=== PATIENT | female | born 1955 | race Caucasian/White ===

== ENCOUNTER → 2016-05-24 | Outpatient (CLI) | payer OTHER ==
--- NOTE | 2016-05-24 11:40 | MM ---
Reason for exam: additional evaluation requested from abnormal screening. Last mammogram was performed less than 1 month ago. History: Patient is postmenopausal, has history of breast cancer at age 46, has history of high-risk lesion on a previous biopsy at age 46, and had first child at age 30. High risk stereotactic core biopsy of the right breast, November 18, 2001. Lumpectomy of the right breast, 2001. Benign excisional biopsy of the left breast, July 17, 1999. Core biopsy of the right breast. Radiation therapy of the right breast. Physical Findings: Nurse did not find any significant physical abnormalities on exam. MG Work Up Mamm w CAD LT LM, CC with magnification, and LM with magnification view(s) were taken of the left breast. Prior study comparison: May 18, 2016, bilateral MG screening mammo w CAD. April 26, 2015, bilateral MG screening mammo w CAD. Finding: There is an indeterminate cluster of calcifications in the left breast for which a tissue biopsy is recommended. These results were verbally communicated with the patient and result sheet given to the patient on 05/24/16. ASSESSMENT: Suspicious, BI-RAD 4 RECOMMENDATION: Stereotactic core biopsy of the left breast. Called Dr. Beaver with mammographic findings and has scheduled an appointment for the patient for 06/14/16 at 9:[address] Sifuentes. PRELIMINARY REPORT CALLED AND FAXED TO DR. SIFUENTES ON 05/24/16 AT 300/TP.
== END | disposition home or self-care (01) ==
LOC: RADMAMWWP 10:33
PROVIDERS: ATTEND Family Medicine
DX: R92.8 Other abnormal and inconclusive findings on diagnostic imaging of breast (principal)

== ENCOUNTER → 2016-06-21 | Day surgery (SDC) | payer OTHER ==
[~2016-06-21] MED LIST: BACITRACIN OINT 1 EACH PACKET TOPICAL ONE; LIDOCAINE 1% INJ 10MG/ML (20 ML MDV) ONE; SODIUM BICARB 4% 5 ML VIAL (0.48 MEQ/ML) ONE
--- NOTE | 2016-06-21 14:49 | MM ---
EXAMINATION TYPE: MG stereo VAD BX LT DATE OF EXAM: 06/21/2016 12:35 PM COMPARISON: 05/18/2016 and 05/24/2016 CLINICAL HISTORY: 60 year-old female history of right breast cancer and abnormal left breast mammogram, referred for stereotactic biopsy of left breast microcalcifications. TECHNIQUE: Stereotactic guided core biopsy of the left breast approximately 8: 00 position. FINDINGS: The procedure of stereotactic guided core biopsy was explained to the patient. Benefits, alternatives, and risks were discussed. An informed consent was then obtained. [facility]. Shortness pathway was CC from below approach. I performed the localization followed by the remainder of the procedure. An 8 gauge mammotome vacuum assisted biopsy gun was used to obtain multiple core samples. The patient tolerated the procedure well without any immediate complication. The patient was kept in the radiology department for short stay after the procedure and then discharged home in stable condition. Targeted calcifications are identified in specimen mammogram. Post biopsy mammogram shows the clip to have migrated superiorly by 1.5-2.0 cm. IMPRESSION: SUCCESSFUL, UNCOMPLICATED STEREOTACTIC GUIDED CORE BIOPSY OF 8:00 LEFT BREAST MICROCALCIFICATIONS, FULL PATHOLOGY RESULTS TO FOLLOW. NOTE SLIGHT SUPERIOR MIGRATION OF THE BIOPSY CLIP. 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 SEE SURGICAL PATHOLOGY CANCER CASE SUMMARY AND COMMENT. Recommendation Surgical consult of the left breast. JOSE
== END ==
LOC: RADMAMWWP 10:41
PROVIDERS: ATTEND Surgery
DX: D05.12 Intraductal carcinoma in situ of left breast (principal); N64.89 Other specified disorders of breast; Z85.3 Personal history of malignant neoplasm of breast; Z88.5 Allergy status to narcotic agent
CPT/HCPCS: 88305; 88342; 88341; 19081; A4648; J2001

== ENCOUNTER → 2016-07-13 | Outpatient (CLI) | payer OTHER ==
[2016-07-13 10:51] LABS: Non-African American GFR(MDRD) >60 (>60 ml/min/1.73 sqM)
== END | disposition home or self-care (01) ==
LOC: LABWHC1 10:36
PROVIDERS: ATTEND Surgery
DX: C50.919 Malignant neoplasm of unspecified site of unspecified female breast (principal)
CPT/HCPCS: 36415; 82565

== ENCOUNTER → 2016-07-16 | Outpatient (CLI) | payer OTHER ==
--- NOTE | 2016-07-19 14:36 | BMR ---
EXAMINATION TYPE: MR breast BILAT wo/w con DATE OF EXAM: 07/16/2016 8:48 AM COMPARISON: Mammogram 18 May 2016 HISTORY: breast ca, left TECHNIQUE: A series of fat and water weighted images in the long and short axis views of both breasts are obtained in conjunction with dynamic contrast MRI with subtraction technique. The patient was i njected with 15 mL intravenous MultiHance gadolinium contrast. Three-dimensional and additional pos tprocessing imaging is created on independent workstation and reviewed during official interpretation of this study. FINDINGS: Left breast: Fibroglandular tissues are present. Post biopsy change is noted at the medial aspect of the left breast . No suspicious mass like enhancement. Stippled background enhancement is noted. No axillary adenopat hy, no internal mammary node. Right breast: Right breast is smaller and is predominantly fatty replaced. No suspicious mass like en hancement. No evident adenopathy. IMPRESSION: Left breast BI-RADS 6, known carcinoma. Follow-up for surgery. No suspicious mass like enhancement. Right breast: BI-RADS 6, known history of breast carcinoma no suspicious mass enhancement within the right breast.
== END | disposition home or self-care (01) ==
LOC: RADMRIMAIN 06:58
PROVIDERS: ATTEND Surgery
DX: C50.919 Malignant neoplasm of unspecified site of unspecified female breast (principal)
CPT/HCPCS: 0159T; C8908; A9577; 77059

== ENCOUNTER → 2016-07-19 | Outpatient (CLI) | payer OTHER ==
--- NOTE | 2016-07-19 14:11 | US ---
EXAMINATION TYPE: US pelvic complete DATE OF EXAM: 07/19/2016 1:57 PM COMPARISON: NONE CLINICAL HISTORY: R10.3 Abdominal Pain,R01.1 heart murmur. gen pelvic pain TECHNIQUE: Transvaginal (TV) and Transabdominal (TA) Date of LMP: post menopausal since 2005 EXAM MEASUREMENTS: Uterus: 5.9 x 2.4 x 3.6 cm Endometrial Stripe: 0.4 cm Right Ovary: 2.1 x 0.8 x 1.0 cm Left Ovary: 1.8 x 1.1 x 1.4 cm tv added to better visualize the uterus and lisa ovaries 1. Uterus: Anteverted wnl 2. Endometrium: wnl 3. Right Ovary: wnl 4. Left Ovary: wnl 5. Bilateral Adnexa: wnl 6. Posterior cul-de-sac: no free fluid seen IMPRESSION: No significant abnormality is appreciated.
--- NOTE | 2016-07-19 14:11 | US ---
EXAMINATION TYPE: US abdomen complete DATE OF EXAM: 07/19/2016 1:43 PM COMPARISON: NONE CLINICAL HISTORY: R10.3 Abdominal Pain,R01.1 heart murmur. ruq pain EXAM MEASUREMENTS: Liver Length: 14.6 cm Gallbladder Wall: 0.2 cm CBD: 0.4 cm Spleen: 8.7 cm Right Kidney: 9.7 x 4.3 x 4.8 cm Left Kidney: 9.2 x 5.6 x 4.9 cm TECHNOLOGIST IMPRESSION: some exam limitations due to overlying bowel gas Pancreas: wnl Liver: wnl Gallbladder: few mobile stones seen, no wall thickening Evidence for sonographic Walden's sign: no CBD: wnl Spleen: wnl Right Kidney: wnl Left Kidney: wnl Upper IVC: wnl Abd Aorta: wnl The liver is homogenous. The intrahepatic portion of the IVC and proximal abdominal aorta are within normal limits. There is evidence of cholelithiasis. Common bile duct is unremarkable. The visualiz ed portions of the pancreas are homogenous. The spleen is unremarkable. Kidneys are symmetric and f ree of hydronephrosis. No renal lesions are seen. IMPRESSION: Uncomplicated cholelithiasis.
== END | disposition home or self-care (01) ==
LOC: RADUSWWP 13:26
PROVIDERS: ATTEND Family Medicine
DX: K80.20 Calculus of gallbladder without cholecystitis without obstruction (principal); R10.30 Lower abdominal pain, unspecified
CPT/HCPCS: 76700; 76830; 76856

== ENCOUNTER → 2016-07-23 | Outpatient (CLI) | payer OTHER ==
--- NOTE | 2016-07-24 09:57 | ECHOF ---
Referral Reason:R01.1 heart murmur MEASUREMENTS -------- HEIGHT: 170.2 cm WEIGHT: 68.5 kg BP: IVSd: 1.1 cm (0.6 - 1.1) LVIDd: 4.3 cm (3.9 - 5.3) LVPWd: 0.6 cm (0.6 - 1.1) IVSs: 1.4 cm LVIDs: 2.8 cm LVPWs: 1.2 cm LA Diam: 2.9 cm (2.7 - 3.8) LAESV Index (A-L): 23.44 ml/m Ao Diam: 2.5 cm (2.0 - 3.7) AV Cusp: 1.7 cm (1.5 - 2.6) LA Diam: 3.3 cm (2.7 - 3.8) MV EXCURSION: 15.098 mm (> 18.000) MV EF SLOPE: 73 mm/s (70 - 150) EPSS: 0.3 cm MV E Kip: 0.38 m/s MV DecT: 278 ms MV A Kip: 0.73 m/s MV E/A Ratio: 0.52 AR PHT: 536 ms RAP: 5.00 mmHg RVSP: 26.63 mmHg FINDINGS -------- Sinus rhythm. This was a technically good study. There is mild concentric left ventricular hypertrophy. Overall left ventricular systolic function is low-normal with, an EF between 50 - 55 %. The right ventricle is normal in size. Normal LA size by volume 22+/-6 ml/m2. The right atrial size is normal. There is mild aortic valve sclerosis. Trace amount of aortic regurgitation. Mild mitral annular calcification present. There is trace mitral regurgitation. Trace tricuspid regurgitation present. There is no evidence of pulmonary hypertension. The right ventricular systolic pressure, as measured by Doppler, is 26.63mmHg. Trace/mild (physiologic) pulmonic regurgitation. The aortic root size is normal. There is no pericardial effusion. CONCLUSIONS -------- 1. There is mild concentric left ventricular hypertrophy. 2. The right ventricular systolic pressure, as measured by Doppler, is 26.63mmHg. 3. Trace/mild (physiologic) pulmonic regurgitation. 4. The aortic root size is normal. 5. There is no pericardial effusion. 6. Overall left ventricular systolic function is low-normal with, an EF between 50 - 55 %. 7. Normal LA size by volume 22+/-6 ml/m2. 8. There is mild aortic valve sclerosis. 9. Trace amount of aortic regurgitation. 10. Mild mitral annular calcification present. 11. There is trace mitral regurgitation. 12. Trace tricuspid regurgitation present. 13. There is no evidence of pulmonary hypertension. ACCOUNTS PAYABLE TECHNICIAN: Amy Velasquez RDCS
== END | disposition home or self-care (01) ==
LOC: RADECHMAIN 11:10
PROVIDERS: ATTEND Family Medicine
DX: I08.8 Other rheumatic multiple valve diseases (principal)
CPT/HCPCS: 93306

== ENCOUNTER 2016-08-14 06:45 | Day surgery (SDC) | payer OTHER ==
[2016-08-09 15:10] VITALS: BMI 23.6
[~2016-08-14 06:45] MED LIST changes: +ALPRAZolam 0.25 MG TAB PO PRN; -BACITRACIN OINT 1 EACH PACKET TOPICAL ONE; +DEXAMETHASONE SOD PHOSPHATE 10 MG/ML 1 ML VIAL IV ONE; +HYDROmorphone 1 MG/ML 1 ML SYRINGE IVP PRN; +LACTATED RINGERS 1,000 ML IV SCH; -LIDOCAINE 1% INJ 10MG/ML (20 ML MDV) ONE; +ONDANSETRON 4 MG/2 ML VIAL IVP ONE; +Pre Op ABX Message 1 EACH MISC MISCELLANE ONE; -SODIUM BICARB 4% 5 ML VIAL (0.48 MEQ/ML) ONE
[2016-08-14] MEDS ORDERED: LIDOCAINE 1% 20 ML VIAL (10MG/ML) FOR IV START INTRADERMA ONE (07:59)
[2016-08-14] MEDS ORDERED: METHYLENE BLUE 50 MG/10 ML AMPUL ONE (08:14)
[2016-08-14] MEDS ORDERED: LIDOCAINE 1% INJ 10MG/ML (20 ML MDV) SQ ONE (08:29)
[2016-08-14] MEDS ORDERED: SODIUM BICARB 4% 5 ML VIAL (0.48 MEQ/ML) MISCELLANE ONE (08:29)
[2016-08-14] MEDS ORDERED: HEPARIN SODIUM,PORCINE 5,000 UNIT/ML 1 ML VIAL SQ ONE (08:52)
[2016-08-14] MEDS ORDERED: METHYLENE BLUE 50 MG/10 ML AMPUL MISCELLANE ONE (09:02)
--- NOTE | 2016-08-14 09:11 | NM ---
EXAMINATION TYPE: NM sentinel node injection DATE OF EXAM: 08/14/2016 8:51 AM COMPARISON: NONE HISTORY: Abnormal left breast biopsy TECHNIQUE AND FINDINGS: The procedure of sentinel lymph node injection was explained to the patient. The benefits, alternatives, and risks were discussed. An informed consent was then obtained. Overlying skin is cleaned with sterile alcohol. Lidocaine buffered with bicarbonate was used as anes thetic into the skin and subcutaneous tissue surrounding the nipple. Following this, 550 uCi Tc 99m Filtered Sulfur Colloid was injected into 4 equivalent doses at 12, 3, 6, and 9:00 position surroundi ng the left nipple intradermally. The injection sites were massaged by eeg technologist for 10 minutes after injection. T he patient tolerated the procedure well without any immediate complication. The patient was kept in the radiology department for short stay after the procedure and then taken to surgery for surgical pr ocedure what is presumed intraoperative gamma probe will be used for sentinel lymph node detection. IMPRESSION: Left breast radiotracer injection for sentinel node localization as above.
[2016-08-14] MEDS ORDERED: SUCCINYLCHOLINE CHLORIDE 100 MG/5 ML SYR IV ONE (09:40)
[2016-08-14] MEDS ORDERED: fentaNYL (PF) 50 MCG/ML 2 ML AMP ONE (09:40)
[2016-08-14] MEDS ORDERED: PROPOFOL 10 MG/ML 20 ML VIAL IV ONE (09:40)
[2016-08-14] MEDS ORDERED: MIDAZOLAM 2 MG/2 ML VIAL ONE (09:40)
[2016-08-14] MEDS ORDERED: SODIUM CHLORIDE 0.9% 50 ML with ceFAZolin 2,000 MG IV ONE ×2 (10:01)
[2016-08-14] MEDS ORDERED: METHYLENE BLUE 10 MG/ML 1 ML VIAL INJ ONE (10:17)
--- NOTE | 2016-08-14 10:41 | MM ---
EXAMINATION TYPE: MG pre op needle loc LT DATE OF EXAM: 08/14/2016 9:02 AM COMPARISON: NONE CLINICAL HISTORY: Abnormal biopsy left breast TECHNIQUE: Needle localization with wire placement and surgical excision of area of concern in the left breast. FINDINGS: The procedure of needle localization with wire placement and than surgical excision was explained to the patient. Benefits, alternatives, and risks were discussed. An informed consent was then obtained. The shortest pathway for procedure was chosen. Shortest pathway was medial approach. The overlying skin was prepped and draped in usual sterile fashion. Lidocaine buffered with bicarbonate was used as anesthetic into the skin and subcutaneous tissue up to the level of area of concern. A 7 cm needle was used. It was placed via a medial approach under mammographic guidance. Subsequent 90 degrees mammogram show the needle to be in satisfactory position relative to the targeted area. At this point, wire was placed and the needle was withdrawn. The wire was fixed to patient's skin. Images were marked for surgeon. The patient tolerated the procedure well without any immediate complication. The patient was kept in the radiology department for short stay after the procedure and then taken to surgery for surgical excision. Targeted biopsy clip and wire are identified in specimen mammogram. The clip migration was taking into account with the needle placed inferior to the clip. Region of concern and history of migration of clip or discussed with surgeon. Postprocedural x-ray demonstrates the surgical clip to be contained within the specimen. IMPRESSION: Successful, uncomplicated needle localization with wire placement left breast. Pathology Results: Benign (original pathology malignant) A. LYMPH NODE, SENTINEL #1, BIOPSY: LYMPH NODE NEGATIVE FOR METASTASIS. CYTOKERATIN 7 AND FLO IMMUNOSTAINS ARE CONFIRMATORY (CONTROLS APPROPRIATE). ADDENDUM REPORT B. BREAST, LEFT, LUMPECTOMY: BREAST WITH FOCAL ATYPICAL DUCTAL HYPERPLASIA (ADH) , PREVIOUS BIOPSY SITE AND FIBROCYSTIC CHANGES INCLUDING FIBROSIS, CYSTS, ADENOSIS, APOCRINE METAPLASIA AND MICROCALCIFICATIONS. NO RESIDUAL DCIS IDENTIFIED. C. BREAST, LEFT, NEW LATERAL MARGINS: PROLIFERATIVE FIBROCYSTIC CHANGES INCLUDING RADIAL SCARS/COMPLEX SCLEROSING LESIONS, FIBROSIS, CYSTS, APOCRINE METAPLASIA, ADENOSIS AND MICROCALCIFICATIONS. FOCAL SCAR/FIBROSIS SUGGESTIVE OF PREVIOUS BIOPSY SITE VERSUS RUPTURED CYST. NEGATIVE FOR MALIGNANCY. Recommendation Follow up mammogram of the left breast in 6 months. [facility]
[2016-08-14] MEDS ORDERED: LACTATED RINGERS 1,000 ML IV ONE (11:42)
--- NOTE | 2016-08-14 11:46 | P.OP ---
Date of Procedure: 08/14/16 Preoperative Diagnosis: Left breast ductal carcinoma in situ Postoperative Diagnosis: Same, sentinel lymph node biopsy negative for cancer Procedure(s) Performed: [place] lymph node mapping, Left breast lumpectomy,oncoplastic tissue transfer , placement of Biozorb, sentinel node biopsy Anesthesia: SHAWNA Surgeon: Estelle Perez Estimated Blood Loss (ml): 5 IV fluids (ml): 1,100 Pathology: other (Left breast lumpectomy, sentinel lymph node biopsy) Condition: stable Disposition: PACU Indications for Procedure: Left breast ductal carcinoma in situ Operative Findings: Left breast dense breast tissue, left axilla blue and radioactive sentinel node Description of Procedure: Patient was taken to the operating room and following induction of general anesthesia 5 mL of half-strength methylene blue were injected in the left periareolar area. The breast was then massaged. The breast and axilla were then prepped and draped in a sterile fashion. The patient had previously undergone needle localization of area of concern in the left breast. An incision was made and carried down to the localizing needle and wide resection was performed. The specimen was removed and the margin probe was utilized to interrogate the margins. The lateral margin was positive and reexcision of lateral margin was obtained. The remainder of the margins were negative on margin probe. Following this the specimen was painted as well as the new lateral margin and the specimen was sent for radiographic evaluation. The area of concern was removed as per radiographic evaluation. Following this after assured that hemostasis was attained arthroplasty tissue plane was performed. The inferior tissue was freed approximately 4 cm inferiorly and the superior tissue was made approximately 4 cm superior free the underlying skin. this was accomplished an 80 cm distance both superiorly and inferiorly. therefore approximately 30 cm of tissue were free. the medial area of the resection specimen was reapproximated using vicryl suture. the specimen was measured for biosorb size placement and a 4 x 4 biosorb was chosen. this was placed in the cavity and the tissues were approximated over this biosorb after it had been secured to the cavity. Dissection was carried posteriorly to the muscle of the pectoralis major. additionally the skin of the breast was removed anteriorly. The subcutaneous tissues were closed with 3-0 Vicryl suture. The skin was closed with 4-0 Monocryl. A 3-0 nylon was placed anterior to this. Following this instruments and gloves were changed and the area of the axilla was approached. The neoprobe was used to identify the area where the sentinel node was located. A small incision was made and carried down to the area of the the axilla. Blue radioactive lymph node was identified and this was carefully removed using the Harmonic scalpel. This was sent for frozen section evaluation which was negative for cancer. After assured that hemostasis was attained the deep tissues were closed using 3-0 Vicryl suture. This is followed by closure of the skin with 4-0 Monocryl. The patient tolerated the procedure in stable condition. All instrument sponge counts were correct at the end of the procedure.
--- NOTE | 2016-08-14 11:48 | P.DS ---
Providers Attending physician: Estelle Perez Primary care physician: Stated None Plan - Discharge Summary Discharge Medication List Enalapril [Vasotec] 10 mg PO TID 10/14/13 [History] Simvastatin [Zocor] 20 mg PO DAILY 10/14/13 [History] Biotin 5 mg PO DAILY 08/09/16 [History] Cholecalciferol [Vitamin D3] 1,000 unit PO DAILY 08/09/16 [History] Multivitamins, Thera [Multivitamin (formulary)] 1 tab PO DAILY 08/09/16 [History ] Follow up Appointment(s)/Referral(s): Estelle Perez MD [STAFF PHYSICIAN] - 1 Week Activity/Diet/Wound Care/Special Instructions: Wear bra at all times Do not drive until seen by Dr. Curran Discharge Disposition: HOME SELF-CARE
[2016-08-14 12:05] VITALS: TEMP 96.8
[2016-08-14] MEDS ORDERED: KETOROLAC 30 MG/ML 1 ML VIAL IVP ONE (12:10)
[2016-08-14 12:41] VITALS: RESP 16
[2016-08-14 12:58] VITALS: BP 139/77; PULSE 73
--- NOTE | 2016-08-20 14:51 | MM ---
MG Surgical Specimen LT EXAMINATION TYPE: MG pre op needle loc LT DATE OF EXAM: 08/14/2016 9:02 AM COMPARISON: NONE CLINICAL HISTORY: Abnormal biopsy left breast TECHNIQUE: Needle localization with wire placement and surgical excision of area of concern in the left breast. FINDINGS: The procedure of needle localization with wire placement and than surgical excision was explained to the patient. Benefits, alternatives, and risks were discussed. An informed consent was then obtained. The shortest pathway for procedure was chosen. Shortest pathway was medial approach. The overlying skin was prepped and draped in usual sterile fashion. Lidocaine buffered with bicarbonate was used as anesthetic into the skin and subcutaneous tissue up to the level of area of concern. A 7 cm needle was used. It was placed via a medial approach under mammographic guidance. Subsequent 90 degrees mammogram show the needle to be in satisfactory position relative to the targeted area. At this point, wire was placed and the needle was withdrawn. The wire was fixed to patient's skin. Images were marked for surgeon. The patient tolerated the procedure well without any immediate complication. The patient was kept in the radiology department for short stay after the procedure and then taken to surgery for surgical excision. Targeted biopsy clip and wire are identified in specimen mammogram. The clip migration was taking into account with the needle placed inferior to the clip. Region of concern and history of migration of clip or discussed with surgeon. Postprocedural x-ray demonstrates the surgical clip to be contained within the specimen. IMPRESSION: Successful, uncomplicated needle localization with wire placement left breast. RECOMMENDATION: Follow-up diagnostic mammogram of the left breast in 6 months.
== END 2016-08-14 13:42 | disposition home or self-care (01) ==
LOC: OR 06:45
PROVIDERS: ATTEND Surgery
DX: D05.12 Intraductal carcinoma in situ of left breast (principal); R92.8 Other abnormal and inconclusive findings on diagnostic imaging of breast; M19.90 Unspecified osteoarthritis, unspecified site; I10 Essential (primary) hypertension; E78.5 Hyperlipidemia, unspecified; Z79.899 Other long term (current) drug therapy; Z88.5 Allergy status to narcotic agent; Z91.048 Other nonmedicinal substance allergy status
CPT/HCPCS: 88342; 88331; 88307; 88341; 76098; 19281; 38792; 38525; 19301; 15777; C1713; A9541; J2250; J1644; J1100; J2405; J2001; J3010; J1885; J0690; J0330; J2704; Q9968

== ENCOUNTER → 2017-09-18 | Outpatient (CLI) | payer OTHER ==
--- NOTE | 2017-09-18 09:24 | US ---
EXAMINATION TYPE: US abdomen complete DATE OF EXAM: 09/18/2017 COMPARISON: NONE CLINICAL HISTORY: 61-year-old female R20.0 NUMBNESS OF FACE. History of breast cancer twice TECHNIQUE: Multiple sonographic images of the abdomen are obtained. FINDINGS: EXAM MEASUREMENTS: Liver Length: 15.4 cm Gallbladder Wall: 0.2 cm CBD: 0.4 cm Spleen: 9.0 cm Right Kidney: 11.0 x 4.0 x 4.8 cm Left Kidney: 10.4 x 3.9 x 6.0 cm Pancreas: wnl Liver: wnl Gallbladder: 2 mobile non shadowing stone seen measuring up to 9 mm. No abnormal gallbladder distent ion, wall thickening, or pericholecystic fluid. Evidence for sonographic Walden's sign: no CBD: wnl Spleen: wnl Right Kidney: wnl Left Kidney: wnl Upper IVC: wnl Abd Aorta: wnl IMPRESSION: Cholelithiasis. Otherwise, unremarkable sonographic examination of the abdomen.
--- NOTE | 2017-09-18 09:27 | US ---
EXAMINATION TYPE: US carotid duplex BILAT DATE OF EXAM: 09/18/2017 COMPARISON: NONE CLINICAL HISTORY: 61-year-old female R20.0 NUMBNESS OF FACE. Episode of facial numbness after medicin e change, no h/o stroke TECHNIQUE: Carotid duplex ultrasound examination. In direct Doppler criteria was utilized. FINDINGS: EXAM MEASUREMENTS: RIGHT: Peak Systolic Velocity (PSV) cm/sec ----- Right CCA: 79.7 ----- Right ICA: 126.6 ----- Right ECA: 64.6 ICA/CCA ratio: 1.6 RIGHT: End Diastole cm/sec ----- Right CCA: 32.6 ----- Right ICA: 50.6 ----- Right ECA: 12.6 LEFT: Peak Systolic Velocity (PSV) cm/sec ----- Left CCA: 89.6 ----- Left ICA: 122.6 ----- Left ECA: 73.2 ICA/CCA ratio: 1.4 LEFT: End Diastole cm/sec ----- Left CCA: 34.6 ----- Left ICA: 46.2 ----- Left ECA: 14.0 VERTEBRALS (direction of flow): Right Vertebral: Antegrade Left Vertebral: Antegrade Rhythm: Normal Pre Billing Clinician notes: Mild homogeneous plaque seen with no significant stenosis seen IMPRESSION: Borderline increased ICA velocities on the right could represent mild to moderate narrowing. Velocity increase secondary to some vessel tortuosity is suspected as there is only mild homogeneous plaque s een. No hemodynamically significant ICA stenosis on either side. Criteria for Assigning % of Stenosis / Diameter reduction (Estimation based on the indirect measurements of the internal carotid artery velocities (ICA PSV). 1. Normal (no stenosis)=ICA PSV < 125 cm/s: ratio < 2.0: ICA EDV<40 cm/s. 2. Less than 50% stenosis=ICA PSV < 125 cm/s: ratio < 2.0: ICA EDV<40 cm/s. 3. 50 to 69% stenosis=ICA PSV of 125 to 230 cm/s: ration 2.0 ? 4.0: ICA EDV 40-100 cm/s. 4. Greater than 70% stenosis to near occlusion= ICA PSV > 230 cm/s: ratio > 4.0: ICA EDV > 100 cm/s. 5. Near occlusion= ICA PSV velocities may be low or undetectable: variable ratio and ICA EDV. 6. Total occlusion=unable to detect flow.
--- NOTE | 2017-09-18 12:41 | US ---
EXAMINATION TYPE: US pelvic complete DATE OF EXAM: 09/18/2017 COMPARISON: NONE CLINICAL HISTORY: 61-year-old female R10.30 Lower abdominal pain. History of breast cancer twice. TECHNIQUE: Transabdominal sonographic images of the pelvis were acquired. Date of LMP: 2005 FINDINGS: EXAM MEASUREMENTS: Uterus: 5.2 x 3.8 x 2.2 cm Endometrial Stripe: 0.3 cm Right Ovary: 1.4 x 1.9 x 0.9 cm for a volume of 1.2 mL. Left Ovary: 1.2 x 1.5 x 0.8 cm for a volume of 0.8 mL. 1. Uterus: Anteverted wnl 2. Endometrium: wnl 3. Right Ovary: wnl 4. Left Ovary: wnl 5. Bilateral Adnexa: wnl 6. Posterior cul-de-sac: wnl IMPRESSION: Unremarkable transabdominal sonographic examination of the pelvis.
== END | disposition home or self-care (01) ==
LOC: RADUSWWP 06:56
PROVIDERS: ATTEND Family Medicine
DX: K80.20 Calculus of gallbladder without cholecystitis without obstruction (principal); I77.9 Disorder of arteries and arterioles, unspecified; R20.0 Anesthesia of skin; R10.30 Lower abdominal pain, unspecified
CPT/HCPCS: 76700; 76856; 93880

== ENCOUNTER → 2017-09-27 | Outpatient (CLI) | payer OTHER ==
--- NOTE | 2017-09-30 09:45 | MR ---
EXAMINATION TYPE: MR lumbar spine wo/w con DATE OF EXAM: 09/27/2017 COMPARISON: NONE HISTORY: sciatica TECHNIQUE: T1 and T2 axial and sagittal images of the lumbar spine are submitted. Contrast: 7 mL Gadavist FINDINGS: There is no abnormal signal seen within the visualized spinal cord or paraspinal soft tissu es. There are multiple gallstones. At L1-2 there is mild generalized degenerative change. No acute disc herniation or canal stenosis. No foraminal encroachment. At L2-3 there is moderate degenerative disc disease. Mild hypertrophy of the facet joints. Neural for kayode are patent. No Canal stenosis. At L3-4 there is severe degenerative disc disease is moderate facet arthropathy. No Canal stenosis. N eural foramina remain patent. Minimal central disc bulging slightly greater paracentrally the left. At L4-5 there is severe degenerative disc disease with moderate facet arthropathy. No canal stenosis or focal herniation. Neural foramina remain patent with mild encroachment on the left At L5-S1 there is degenerative disc disease with facet arthropathy but no canal stenosis or focal her niation. Mild right neural foraminal encroachment. Mild bilateral right lateral disc bulging. IMPRESSION: 1. Scoliotic curvature with multilevel severe degenerative disc disease. No canal stenosis or focal h erniation. There is mild neural foraminal encroachment at multiple levels as discussed above. 2. Cholelithiasis. MRI of the brain with and without contrast EXAM DATE: 09/27/2017 HISTORY: Facial paresthesia. TECHNIQUE: T1-weighted sagittal, T2, FLAIR, and diffusion axial, postcontrast T1 axial and coronal vi ews of the brain are submitted. CONTRAST: 7 mL Gadavist FINDINGS: There is no evidence of acute ischemia. The ventricles, basal cisterns, and sulci overlying the co nvexities are consistent with the patient's age. There is no mass effect or enhancing mass. Craniocervical junction maintained. Sella turcica has a normal appearance. No evidence of cerebellopo ntine angle mass. This changes of chronic sinusitis. WHITE MATTER: There are approximately 40 white matter lesions all measuring 5 mm or less. No enhancing lesions. No callosal lesions. No lesions perpendicular to ventricular system. IMPRESSION: 1. No acute intracranial process. 2. Nonspecific white matter changes can be associated with remote microvascular ischemia, hypertensio n. Demyelinating process not entirely excluded correlate clinically.
== END | disposition home or self-care (01) ==
LOC: RADMRIMAIN 14:16
PROVIDERS: ATTEND Family Medicine
DX: M51.16 Intervertebral disc disorders with radiculopathy, lumbar region (principal); M41.9 Scoliosis, unspecified; R90.89 Other abnormal findings on diagnostic imaging of central nervous system
CPT/HCPCS: 70553; 72158; A9581

== ENCOUNTER → 2017-10-18 | Outpatient (CLI) | payer OTHER ==
[2017-10-18 09:38] VITALS: BP 144/81; PULSE 75; TEMP 97.7; BMI 22.2
--- NOTE | 2017-10-18 10:24 | P.BCHP ---
History of Present Illness H&P Date: 10/18/17 The patient is a 62-year-old white female status post right breast lumpectomy and radiation therapy approximately 15 years ago for breast cancer. She did not have any chemo or hormonal therapy at that time. The patient most recently has undergone a left breast lumpectomy and radiation therapy in July 2016 for a breast cancer the patient did not have any chemo or hormonal therapy. She continues to feel fullness in the left breast near the area of the lumpectomy which seems to fluctuate in size at times. When she lays down it feels heavy at that site. A recent mammogram 04-29-17 which was bilateral felt to be benign but follow-up diagnostic mammogram of the left breast in 6 months time was recommended. Age of Menarche: 10 Age of Menopause: 46 # of Pregnancies: 1 Age at 1st : 30 Age at 1st Full-Term : 30 Hx of Breast-feeding: yes Currently Breast-feeding: no Current Use of Control: no How Long Using Control (Years): none How Long Using Hormone Therapy (Years): none Duration of Radiation Therapy (Months): Radiation Exposure to Chest Wall: treatetd for breast cancer bilateral Personal Hx Cancer: breast cancer bilateral Family Medical Hx: father: skin melanoma social history: smoke: none alcohol:none drugs: none BC Information Comment: Review of Systems Patient states she has known gallstones with intermittent right upper quadrant abdominal discomfort Neurologic: Patient states that she has had some dizziness and is being evaluated for MS Constitutional: Denies chills, Denies fever Eyes: denies blurred vision, denies bulging eye, denies decreased vision, denies diplopia, denies discharge, denies loss of vision Ears: right: decreased hearing (feels like fluid in her ear right), deny: ear discharge, earache, tinnitus Ears, nose, mouth and throat: Denies headache, Denies sore throat Breasts: bilateral: as per HPI Cardiovascular: Reports high blood pressure Respiratory: Denies cough Gastrointestinal: Denies diarrhea, Denies nausea, Denies vomiting Genitourinary: Denies dysuria, Denies hematuria Neurological: Reports numbness Psychiatric: Denies anxiety, Denies depression Endocrine: Denies fatigue, Denies weight change Past Medical History Past Medical History: Cancer, Hyperlipidemia, Hypertension, Rheumatoid Arthritis (RA) Additional Past Medical History / Comment(s): BREAST CANCER, RIGHT: 2005 OR 2007 , LEFT: 2017. scoliosis and sciaticca. degenerative disc disease History of Any Multi-Drug Resistant Organisms: None Reported Past Surgical History: Breast Surgery, Orthopedic Surgery Additional Past Surgical History / Comment(s): bunion. breast cancer: right 2005 or 2007, left 2017 Smoking Status: Never smoker Past Alcohol Use History: None Reported Past Drug Use History: None Reported - Past Family History Father Additional Family Medical History / Comment(s): skin cancer. mesothelioma. heart disease Mother Additional Family Medical History / Comment(s): parkinson's disease. heart disease Brother(s) Additional Family Medical History / Comment(s): polio. emphysema Medications and Allergies Home Medications Medication Instructions Recorded Confirmed Type Enalapril [Vasotec] 10 mg PO TID 10/14/13 08/09/16 History Simvastatin [Zocor] 20 mg PO DAILY 10/14/13 08/09/16 History Biotin 5 mg PO DAILY 08/09/16 08/09/16 History Cholecalciferol [Vitamin D3] 1,000 unit PO DAILY 08/09/16 08/09/16 History Multivitamins, Thera [Multivitamin 1 tab PO DAILY 08/09/16 08/09/16 History (formulary)] Allergies Allergy/AdvReac Type Severity Reaction Status Date / Time codeine Allergy Rash/Hives Verified 08/14/16 07:28 SURGICAL TAPE Allergy REDNESS Uncoded 08/09/16 16:12 Physical Exam - Constitutional General appearance: Reports average body habitus - Neck Neck: Reports normal ROM - Breast Breast - Narrative: breast exam: right: Postoperative changes from prior lumpectomy no new masses or lesions of concern Right axilla: No adenopathy of concern Left breast: Postop changes BioSorb still appears to be palpable no lesions of concern Left axilla no adenopathy of concern Assessment and Plan Assessment: Impression/plan: 1. History of bilateral breast cancer 2. Abnormal left breast mammogram 3. Symptomatic right upper quadrant discomfort with history of gallstones 4. Patient is being evaluated for MS Plan: 1. Repeat left breast mammogram with repeat appointment following this 2. Will discuss with Dr. Kitchen possibility of cholecystectomy Cc: Dr. Kitchen
== END | disposition home or self-care (01) ==
LOC: WWCWWP 09:23
PROVIDERS: ATTEND Surgery
DX: Z53.9 Procedure and treatment not carried out, unspecified reason (principal)

== ENCOUNTER → 2017-10-29 | Outpatient (CLI) | payer OTHER ==
--- NOTE | 2017-10-29 14:25 | MM ---
Reason for exam: follow-up at short interval from prior study. Last mammogram was performed 6 months ago. History: Patient is postmenopausal, has history of breast cancer at age 46, has history of high-risk lesion on a previous biopsy at age 46, and had first child at age 30. Benign MG pre op needle loc LT of the left breast, August 14, 2016. Malignant MG stereo VAD BX LT of the left breast, June 21, 2016. High risk stereotactic core biopsy of the right breast, November 18, 2001. Lumpectomy of the right breast, 2001. Benign excisional biopsy of the left breast, July 17, 1999. Core biopsy of the right breast. Radiation therapy of the right breast. Physical Findings: Nurse did not find any significant physical abnormalities on exam. MG Diagnostic Mammo LT w CAD CC and MLO view(s) were taken of the left breast. Prior study comparison: April 29, 2017, bilateral MG diagnostic mammo w CAD [facility]. May 24, 2016, left breast MG work up mamm w CAD LT. The breast tissue is heterogeneously dense. This may lower the sensitivity of mammography. Finding: There are typically benign calcifications in the left breast. Marked skin thickened. Post surgical change. Correlate for surgical implant device left lower inner quadrant. These results were verbally communicated with the patient and result sheet given to the patient on 10/29/17. ASSESSMENT: Benign, BI-RAD 2 RECOMMENDATION: Follow-up diagnostic mammogram of both breasts in 6 months. Called with mammographic findings and has scheduled an appointment for the patient for 10/31/17 at 10:[address] Perez. PRELIMINARY REPORT CALLED AND FAXED TO DR. PEREZ ON 10/29/17.
== END | disposition home or self-care (01) ==
LOC: RADMAMWWP 12:31
PROVIDERS: ATTEND Radiology Radiation Oncology
DX: Z08 Encounter for follow-up examination after completed treatment for malignant neoplasm (principal)
CPT/HCPCS: 77065

== ENCOUNTER → 2017-10-31 | Outpatient (CLI) | payer OTHER ==
[2017-10-31 11:11] VITALS: BP 126/71; PULSE 63; BMI 22.7
--- NOTE | 2017-10-31 11:28 | P.PN ---
Progress Note - Text Progress Note Date: 10/31/17 The patient is a 62-year-old white female status post left breast lumpectomy approximately 1-1/2 years ago. At that time she had a BioSorb and placed. She underwent a recent left breast mammogram on 10/29/2017. The left breast mammogram revealed some skin thickening and benign appearing calcifications in the left breast. This was felt to be a benign BIRADS 2 follow-up diagnostic mammogram of both breasts in 6 months was recommended. The patient is doing well with no complaints. Physical examination: Left breast: Postop as well as radiation changes noted in the left breast it appears that the BioSorb is not completely resolved at this time No axillary adenopathy of concern was identified Impression/plan: 1. We have had discussion regarding the left breast mammogram, it is felt that the palpable changes in the breasts are related to scar tissue, not completely absorbed BioSorb, and radiation. We will continue to follow conservatively 2. Repeat bilateral breast mammogram in 6 months time with appointment at that time. CC; [place], Dr. Vega radiation oncology
== END | disposition home or self-care (01) ==
LOC: WWCWWP 10:44
PROVIDERS: ATTEND Surgery
DX: Z53.9 Procedure and treatment not carried out, unspecified reason (principal)

== ENCOUNTER → 2017-10-31 | Outpatient (CLI) | payer OTHER ==
--- NOTE | 2017-10-31 13:28 | BD ---
EXAMINATION TYPE: Axial Bone Density DATE OF EXAM: 10/31/2017 COMPARISON: 04.26.2015 DEXA bone scan. CLINICAL HISTORY: 62 YR OLD FEMALE....ICD-10 CODE: Z13.820 SCREENING FOR OSTEOPOROSIS Height: 63.2 Weight: 143 FRAX RISK QUESTIONS: Family History (Parent hip fracture): YES Rheumatoid Arthritis: YES RISK FACTORS HISTORY OF: Family History of Osteoporosis: YES, MOTHER AND GRANDMOTHER WITH HIP FX Active: YES Diet low in dairy products/other sources of calcium: NO Postmenopausal woman: YES AT AGE 46 YRS OLD Lost more than 2 inches in height since high school: YES MEDICATIONS: Additional Medications: BP MEDS, HX OF RADIATION, VIT D AND MULTIVIT, STATINS FOR CHOLESTEROL, Additional History: DGD LOWER SPINE, HX OF BILAT BREAST CA, 2005 AND 2016 EXAM MEASUREMENTS: Bone mineral densitometry was performed using the [employer] System. Bone mineral density as measured about the Lumbar spine is: ----- L1-L4(G/cm2): 1.291 T Score Values are as follows: ----- L1: -0.2 ----- L2: 0.8 ----- L3: 1.5 ----- L4: 1.3 ----- L1-L4: 0.9 Bone mineral density has: Increased 3.7% since study of: 04.26.2015 Bone mineral density about the R hip (g/cm2): 1.086 Bone mineral density about the L hip (g/cm2): 1.153 T Score values are as follows: -----R Neck: 0.6 -----L Neck: 0.3 -----R Total: 0.6 -----L Total: 1.2 Bone mineral density has: Decreased -4.7% since study of: 04.26.2015 FRAX%s: THERE IS A 16.3% CHANCE OF A MAJOR OSTEOPOROTIC FX AND A 0.2% FOR HIP........PROBABILITY O F FX IN 10 YRS TIME IMPRESSION: Normal (Values between +1 and -1 indicate normal bone mass). Consider repeating this study in 5 year s or sooner if there is some new clinical indication. NOTE: T-SCORE=SD OF THE YOUNG ADULT MEAN.
== END | disposition home or self-care (01) ==
LOC: RADBDWWP 11:46
PROVIDERS: ATTEND Family Medicine
DX: Z13.820 Encounter for screening for osteoporosis (principal)
CPT/HCPCS: 77080

== ENCOUNTER → 2018-01-07 | Outpatient (CLI) | payer OTHER ==
[2018-01-07 17:08] LABS: Appearance,CSF Clear; CSF Tube Number 4; CSF Tube Volume 4; Nucleated Cells, CSF 0 u/L (0-5); Red Blood Cell,CSF 1 u/L (0-10)
[2018-01-07 17:23] LABS: Total Protein,CSF 62 mg/dL (12-60)
[2018-01-08 13:43] LABS: IgG/Albumin Index (CSF) 0.47 (0.00 - 0.77); Immunoglobulin G 805 mg/dL (700 - 1600)
== END | disposition home or self-care (01) ==
LOC: LABWHC1 11:52
PROVIDERS: ATTEND Nurse Practitioner Acute Care
DX: R90.82 White matter disease, unspecified (principal)
CPT/HCPCS: 36415; 82040; 82042; 82784; 83873; 83916; 84157; 87476; 89050

== ENCOUNTER 2018-01-10 19:47 | Emergency (ER) | payer OTHER ==
[2018-01-10] MEDS ORDERED: diphenhydrAMINE 50 MG/ML 1 ML VIAL IVP STA (21:26)
[2018-01-10] MEDS ORDERED: BUTALB/APAP/CAFF 50-325-40MG TAB PO STA (21:26)
[2018-01-10] MEDS ORDERED: PROCHLORPERAZINE 5 MG TAB PO STA (21:26)
[2018-01-10] MEDS ORDERED: SODIUM CHLORIDE 0.9% 1,000 ML IV STA (21:27)
[2018-01-10 21:58] VITALS: RESP 18
[2018-01-10] MEDS ORDERED: LISINOPRIL 20 MG TAB PO STA (21:58)
[2018-01-10 22:40] VITALS: BP 161/81; PULSE 69
--- NOTE | 2018-01-10 22:49 | ED ---
General Adult HPI - General Source: patient, RN notes reviewed Mode of arrival: ambulatory Limitations: no limitations <Vicente Ricci P - Last Filed: 01/11/18 01:44> <Jennifer Denis P - Last Filed: 01/12/18 05:05> - General Chief complaint: Headache Stated complaint: post op/fever & headache Time Seen by Provider: 01/10/18 21:01 - History of Present Illness Initial comments: 62-year-old female presents to the emergency department for a chief complaint of headache 3 days. Patient states she had a lumbar puncture 3 days ago due to having "white lesions" on her brain. Patient states that since that time she has had a mild headache. She states the headache is better when lying down and worsened when she sits up. Patient states she did contact the facility that performed the lumbar puncture but did not receive a phone call back as she had to leave a message. Patient also admits to mild nausea. Patient denies fevers at home. She states she had "chills" for a couple minutes 2 days ago but has had none sense. Patient denies any visual changes. Patient has been taking coffee for pain as was recommended by the nurse at the facility where lumbar puncture was performed. Patient has no other complaints at this time including shortness of breath, chest pain, abdominal pain, nausea or vomiting. (Vicente Ricci) - Related Data Home Medications Medication Instructions Recorded Confirmed Enalapril [Vasotec] 10 mg PO HS 10/14/13 01/10/18 Cholecalciferol [Vitamin D3] 1,000 unit PO HS 08/09/16 01/10/18 Multivitamins, Thera [Multivitamin 1 tab PO HS 08/09/16 01/10/18 (formulary)] Aspirin EC [Ecotrin Low Dose] 81 mg PO DAILY 01/10/18 01/10/18 Enalapril [Vasotec] 20 mg PO QAM 01/10/18 01/10/18 Simvastatin [Zocor] 20 mg PO HS 01/10/18 01/10/18 Allergies Allergy/AdvReac Type Severity Reaction Status Date / Time codeine Allergy Rash/Hives Verified 01/10/18 22:28 SURGICAL TAPE Allergy REDNESS Uncoded 01/10/18 19:56 Review of Systems ROS Other: All systems not noted in ROS Statement are negative. <Vicente Ricci P - Last Filed: 01/11/18 01:44> ROS Other: All systems not noted in ROS Statement are negative. <Jennifer Denis P - Last Filed: 01/12/18 05:05> ROS Statement: Those systems with pertinent positive or pertinent negative responses have been documented in the HPI. Past Medical History Past Medical History: Cancer, Hyperlipidemia, Hypertension, Rheumatoid Arthritis (RA) Additional Past Medical History / Comment(s): BREAST CANCER, RIGHT: 2005 OR 2007 , LEFT: 2016. scoliosis and sciaticca. degenerative disc disease History of Any Multi-Drug Resistant Organisms: None Reported Past Surgical History: Breast Surgery, Orthopedic Surgery Additional Past Surgical History / Comment(s): bunion. breast cancer: right 2005 or 2007, left 2017 Past Psychological History: No Psychological Hx Reported Smoking Status: Never smoker Past Alcohol Use History: None Reported Past Drug Use History: None Reported - Past Family History Father Additional Family Medical History / Comment(s): skin Mother Additional Family Medical History / Comment(s): parkinson's disease. heart disease Brother(s) Additional Family Medical History / Comment(s): polio. emphysema <Vicente Ricci P - Last Filed: 01/11/18 01:44> General Exam Limitations: no limitations General appearance: alert, in no apparent distress (Patient is lying in bed on exam, pleasant and cooperative) Head exam: Present: atraumatic, normocephalic, normal inspection Eye exam: Present: normal appearance, PERRL, EOMI. Absent: scleral icterus, conjunctival injection, nystagmus, periorbital swelling, periorbital tenderness ENT exam: Present: normal exam, normal oropharynx, mucous membranes moist, TM's normal bilaterally, normal external ear exam Neck exam: Present: normal inspection, full ROM. Absent: tenderness, meningismus, lymphadenopathy Respiratory exam: Present: normal lung sounds bilaterally. Absent: respiratory distress, wheezes, rales, rhonchi, stridor Cardiovascular Exam: Present: regular rate, normal rhythm, normal heart sounds. Absent: systolic murmur, diastolic murmur, rubs, gallop, clicks GI/Abdominal exam: Present: soft, normal bowel sounds. Absent: distended, tenderness, guarding, rebound, rigid Extremities exam: Present: full ROM (Moves all extremities without difficulty) Neurological exam: Present: alert, oriented X3, CN II-XII intact Expanded Neurological exam: Absent: inattentive, memory loss-remote event, memory loss- recent event, ataxia, receptive aphasia, expressive aphasia, total aphasia, tremor Patient oriented to: Present: person, place, time Speech: Present: fluid speech Cranial nerves: EOM's Intact: Normal, Tongue Deviation: Normal, Nystagmus: Normal Cerebellar function: Finger to Nose: Normal Upper motor neuron: Pronator Drift: Normal Sensory exam: Upper Extremity Light Touch: Normal, Upper Extremity Pin Prick: Normal, Lower Extremity Light Touch: Normal, Lower Extremity Pin Prick: Normal Motor strength exam: RUE: 5, LUE: 5, RLE: 5, LLE: 5 Eye Response: (4) open spontaneously Motor Response: (6) obeys commands Verbal Response: (5) oriented Yennifer Total: 15 Psychiatric exam: Present: normal affect, normal mood <Vicente Ricci P - Last Filed: 01/11/18 01:44> Vital Signs 01/10/18 01/10/18 01/10/18 19:54 21:54 22:34 Temperature 98.3 F 97.6 F Pulse Rate 65 73 69 Respiratory 16 18 18 Rate Blood Pressure 139/79 199/92 161/81 O2 Sat by Pulse 98 99 100 Oximetry Medical Decision Making <Vicente Ricci P - Last Filed: 01/11/18 01:44> <Jennifer Denis P - Last Filed: 01/12/18 05:05> - Medical Decision Making 62-year-old female presents to the emergency department for a chief complaint of headache 3 days after receiving a lumbar puncture. Patient denies fevers or chills. Patient states the pain is a pressure that is worsened by sitting up. She states the pain goes away when she lies down. On exam, no focal neuro deficits. GCS 15. Full ROM of neck. No meningeal signs. Patient was given Fioricet, Benadryl, and Compazine and had complete resolution of symptoms. Patient was offered a sphenopalatine nerve block but refused at this time as her pain has resolved with medications. Patient will continue Excedrin at home. Patient will f/u with PCP in 1-2 days. Patient aware to return to the emergency Department if she has any worsening symptoms, fevers or chills, or any other additional concerns. Patient did have an elevated blood pressure of 199/92. However she did not take her p.m. dose of 20 mg enalapril. After patient was given her blood pressure medication BP stabilized to 161/81. Vitals otherwise within normal limits. No evidence of SIRS criteria. (Vicente Ricci) I was available for consultation in the emergency department. The history and physical exam were done by the midlevel provider. I was consulted for this patient's care. I reviewed the case with the midlevel provider and based on their presentation of the patient, I agree with the assessment, medical decision making and plan of care as documented. (Jennifer Denis) Disposition Is patient prescribed a controlled substance at d/c from ED?: No Time of Disposition: 22:49 <Vicente Ricci P - Last Filed: 01/11/18 01:44> <Jennifer Denis - Last Filed: 01/12/18 05:05> Clinical Impression: Spinal headache Disposition: HOME SELF-CARE Condition: Good Instructions: Acute Headache (ED) Additional Instructions: Please take Excedrin for pain. Please follow-up with primary care in 1-2 days. Return to the emergency department if you have any worsening symptoms. Referrals: Stephanie Beaver MD [Primary Care Provider] - 1-2 days
[2018-01-10 23:03] VITALS: TEMP 97.6
== END 2018-01-10 23:08 | disposition home or self-care (01) ==
LOC: EC 19:47
DX: G97.1 Other reaction to spinal and lumbar puncture (principal); E78.5 Hyperlipidemia, unspecified; I10 Essential (primary) hypertension; Z85.3 Personal history of malignant neoplasm of breast; Z79.82 Long term (current) use of aspirin; Z79.899 Other long term (current) drug therapy; Z88.5 Allergy status to narcotic agent; Z91.048 Other nonmedicinal substance allergy status
CPT/HCPCS: 99283; 96374; 96361; S0183; J1200

== ENCOUNTER 2018-02-24 05:37 | Day surgery (SDC) | payer OTHER ==
[2018-02-21 11:58] VITALS: BMI 23.0
[~2018-02-24 05:37] MED LIST changes: -ALPRAZolam 0.25 MG TAB PO PRN; -DEXAMETHASONE SOD PHOSPHATE 10 MG/ML 1 ML VIAL IV ONE; +HEPARIN SODIUM,PORCINE 5,000 UNIT/ML 1 ML VIAL SQ ONE; -HYDROmorphone 1 MG/ML 1 ML SYRINGE IVP PRN; -LACTATED RINGERS 1,000 ML IV SCH; -ONDANSETRON 4 MG/2 ML VIAL IVP ONE; -Pre Op ABX Message 1 EACH MISC MISCELLANE ONE; +ceFAZolin IN SWFI 2 GM/20 ML SYRINGE IVP ONE
[2018-02-24] MEDS ORDERED: DEXAMETHASONE SOD PHOSPHATE 10 MG/ML 1 ML VIAL IV ONE (05:41)
[2018-02-24] MEDS ORDERED: LACTATED RINGERS 1,000 ML IV SCH (05:41)
[2018-02-24] MEDS ORDERED: ONDANSETRON 4 MG/2 ML VIAL IVP ONE (05:41)
[2018-02-24] MEDS ORDERED: fentaNYL (PF) 50 MCG/ML 2 ML AMP IV PRN (05:41)
[2018-02-24] MEDS ORDERED: MIDAZOLAM 2 MG/2 ML VIAL IV PRN (05:41)
[2018-02-24] MEDS ORDERED: LIDOCAINE 1% 20 ML VIAL (10MG/ML) FOR IV START INTRADERMA PRN (05:41)
[2018-02-24 06:22] VITALS: RESP 16
[2018-02-24] MEDS ORDERED: INDOCYANINE GREEN 25 MG VIAL IV STA (07:36)
[2018-02-24] MEDS ORDERED: GLYCOPYRROLATE 0.2 MG/ML 2 ML VIAL ONE (07:37)
[2018-02-24] MEDS ORDERED: MIDAZOLAM 2 MG/2 ML VIAL ONE (07:37)
[2018-02-24] MEDS ORDERED: ePHEDrine SULFATE/0.9% NACL/PF 50 MG/5 ML SYRINGE IV ONE (07:37)
[2018-02-24] MEDS ORDERED: HYDROmorphone (PF) 1 MG/ML ONE (07:37)
[2018-02-24] MEDS ORDERED: LIDOCAINE 1% INJ 10MG/ML (20 ML MDV) ONE (07:37)
[2018-02-24] MEDS ORDERED: NEOSTIGMINE 1 MG/ML 10 ML VIAL ONE (07:37)
[2018-02-24] MEDS ORDERED: ROCURONIUM BROMIDE 10 MG/ML 10 ML VIAL IV ONE (07:37)
[2018-02-24] MEDS ORDERED: fentaNYL (PF) 50 MCG/ML 2 ML AMP ONE (07:37)
[2018-02-24] MEDS ORDERED: KETOROLAC 30 MG/ML 1 ML VIAL ONE (07:37)
[2018-02-24] MEDS ORDERED: PROPOFOL 10 MG/ML 20 ML VIAL IV ONE (07:37)
[2018-02-24] MEDS ORDERED: SUCCINYLCHOLINE CHLORIDE 100 MG/5 ML SYR IV ONE (07:37)
--- NOTE | 2018-02-24 07:38 | P.GSHP ---
History of Present Illness H&P Date: 02/24/18 CHIEF COMPLAINT: Cholecystitis HISTORY OF PRESENT ILLNESS: The patient is a 62-year-old male who presents with cholecystitis. PAST MEDICAL HISTORY: Please see list. PAST SURGICAL HISTORY: Please see list. MEDICATIONS: Please see list. ALLERGIES: Please see list. SOCIAL HISTORY: No illicit drug use FAMILY HISTORY: No reports of Crohn disease or ulcerative colitis. REVIEW OF ORGAN SYSTEMS: CONSTITUTIONAL: No reports of fevers or chills. GI: Denies any blood in stools or constipation. PHYSICAL EXAM: VITAL SIGNS: Stable GENERAL: Well-developed and pleasant in no acute distress. HEENT: No scleral icterus. Extraocular movements grossly intact. Moist buccal mucosa. NECK: Supple without lymphadenopathy. CHEST: Unlabored respirations. Equal bilateral excursions. CARDIOVASCULAR: Regular rate and rhythm. Distal 2+ pulses. ABDOMEN: Soft, nondistended. MUSCULOSKELETAL: No clubbing, cyanosis, or edema. ASSESSMENT: 1. Cholecystitis PLAN: 1. Recommend proceeding with robotic cholecystectomy Past Medical History Past Medical History: Cancer, Hyperlipidemia, Hypertension, Rheumatoid Arthritis (RA) Additional Past Medical History / Comment(s): BREAST CANCER, RIGHT: 2001 & LEFT : 2017. Scoliosis and Sciatica, degenerative disc disease. Currently being tested for MS. States has 40 lesions on her brain and is not sure what is causing it. History of Any Multi-Drug Resistant Organisms: None Reported Past Surgical History: Breast Surgery, Orthopedic Surgery Additional Past Surgical History / Comment(s): benjy, D&C,. Lumpectomy 2001 on the R side and L side 2017. Lumbar puncture. Past Anesthesia/Blood Transfusion Reactions: No Reported Reaction Smoking Status: Never smoker - Past Family History Father Additional Family Medical History / Comment(s): skin Mother Additional Family Medical History / Comment(s): parkinson's disease. heart disease Brother(s) Additional Family Medical History / Comment(s): polio. emphysema Medications and Allergies Home Medications Medication Instructions Recorded Confirmed Type Enalapril [Vasotec] 10 mg PO HS 10/14/13 02/24/18 History Cholecalciferol [Vitamin D3] 1,000 unit PO HS 08/09/16 02/24/18 History Multivitamins, Thera [Multivitamin 1 tab PO HS 08/09/16 02/24/18 History (formulary)] Aspirin EC [Ecotrin Low Dose] 81 mg PO DAILY 01/10/18 02/24/18 History Enalapril [Vasotec] 20 mg PO QAM 01/10/18 02/24/18 History Simvastatin [Zocor] 20 mg PO HS 01/10/18 02/24/18 History Allergies Allergy/AdvReac Type Severity Reaction Status Date / Time azithromycin Allergy Rash/Hives Verified 02/24/18 06:19 [From Zithromax Z-Jarred] codeine Allergy Rash/Hives Verified 02/24/18 06:19 SURGICAL TAPE Allergy REDNESS Uncoded 02/24/18 06:19 Surgical - Exam Vital Signs Temp Pulse Resp BP Pulse Ox 98.0 F 83 16 145/83 98 02/24/18 06:21 02/24/18 06:21 02/24/18 06:21 02/24/18 06:21 02/24/18 06:21
[2018-02-24] MEDS ORDERED: ceFAZolin IN SWFI 2 GM/20 ML SYRINGE IVP ONE (07:47)
[2018-02-24] MEDS ORDERED: BUPIVACAIN-EPI 0.25%-1:200,000 30 ML VIAL SQ ONE (07:49)
[2018-02-24 08:26] LABS: HCT 35.8 % (34.0-46.0); HGB 12.3 gm/dL (11.4-16.0); MCH 29.7 pg (25.0-35.0); MCHC 34.3 g/dL (31.0-37.0); MCV 86.6 fL (80.0-100.0); Mean Platelet Volume 6.4; Platelet Count 216 k/uL (150-450); RBC 4.14 m/uL (3.80-5.40)
--- NOTE | 2018-02-24 08:54 | P.OP ---
Date of Procedure: 02/24/18 Description of Procedure: SURGEON: NATASHA BAUTISTA MD ATHLETIC TRAINING INTERNSHIP: PREOPERATIVE DIAGNOSES: 1. Symptomatic gallstones 2. Chronic cholecystitis 3. Hyperlipidemia 4. Hypertensive heart disease POSTOPERATIVE DIAGNOSES: 1. Symptomatic gallstones 2. Chronic cholecystitis 3. Hyperlipidemia 4. Hypertensive heart disease 5. Epigastric and left upper quadrant peritoneal adhesions greater omentum to abdominal wall OPERATION: Robotic-assisted da Rehan Xi laparoscopic cholecystectomy, multiport with FIREFLY ESTIMATED BLOOD LOSS: 5 mL. SPECIMENS REMOVED: Gallbladder. COMPLICATIONS: None. OPERATIVE FINDINGS: 1. Chronic cholecystitis 2. Greater omental adhesions epigastrium and left upper quadrant INDICATIONS: The patient is a 62-year-old female who presents with cholelcystitis. Surgical intervention with a laparoscopic cholecystectomy was described at length including injury to the biliary tree, bleeding, infection, need for further surgery. Informed consent was obtained. Robotic assisted laparoscopic approach was described. Benefits and risks of the procedure including but not limited to bleeding, infection, injury to the biliary tree was described. Informed consent was obtained. DESCRIPTION OF PROCEDURE: Patient was brought to the operating room, placed in supine position. After general induction, the abdomen had been prepped and draped in standard sterile fashion. The robotic da Rehan XI system was primed. After a timeout protocol was performed, the patient had been prepped and draped in standard sterile fashion. The patient was injected with indocyanine green. A 5 mm 0 degrees laparoscopic trocar entry was performed along the left upper quadrant. The abdomen insufflated to 15 mmHg pressure which she tolerated well. Diagnostic laparoscopy demonstrated no injury to bowel viscera or mesentery. Adhesions were found along the epigastrium and left upper quadrant. The liver surface was unremarkable. Next, two 8 mm robotic ports were placed along the right upper abdomen. The camera 8-mm port was maintained along the epigastrium. Another 8 mm port was placed along the left upper abdominal wall after exchanging the 5 mm port. Please note that the ports were placed at least 10 to 15 cm away from the target anatomy of the gallbladder. The robot was docked along the left lateral abdomen. The patient was repositioned in reverse Trendelenburg position. Using a grasper for arm 3, a grasper for arm 4, including hook cautery for arm 1 , the robotic system was docked and primed as described. Instruments were interchanged by the optometrist assistant including hook cautery, Bovie cautery and clip appliers. I had sat at the console. Adhesions were addressed along the epigastrium. Additionally adhesions were identified along the infundibulum of the gallbladder and addressed using hook cautery. The gallbladder fundus was retracted over the dome of the liver. Initial attention was brought to the infundibulum which was gently retracted in the inferior lateral approach. Using a grasper, the cystic duct including the cystic artery was carefully skeletonized. FIREFLY was used to identify the cystic artery and cystic structures. Large PLASTIC clips were used throughout the entire case. Using a clip motor grader operator 2 clips were placed proximally, and 1 clip was placed distally along the cystic duct and then cauterized with the cautery. Again care was taken to avoid any injury to the biliary tree as the common bile duct was clearly visualized during this portion of dissection. Next, the cystic artery was similarly clipped and cauterized. Electro-Bovie cautery was used to remove the gallbladder from the hepatic fossa. Hemostasis was checked and found to be adequate. The robot was undocked. I re-scrubbed into the case. Using a 10 mm Endo Catch bag via the left upper quadrant incision, the specimen was removed from the abdominal cavity. All pneumoperitoneum instruments were evacuated from the abdominal cavity. The incisions were reapproximated using 4-0 Monocryl in an interrupted subcuticular fashion. Fascial defects were less than 8 mm in size. Please note along the trocar sites, local anesthetic was placed as a field block prior to insertion of all instruments. Liquid glue was applied to the skin. At the end of the procedure needle, sponge, and instrument count had been verified correct by the surgical brace maker. The patient was transferred to postanesthesia care unit in stable condition. Intraoperative films were shared with the patient's family who were very pleased with the level of care. Console time 15 minutes Plan - Discharge Summary New Discharge Prescriptions: No Action Enalapril [Vasotec] 10 mg PO HS Multivitamins, Thera [Multivitamin (formulary)] 1 tab PO HS Cholecalciferol [Vitamin D3] 1,000 unit PO HS Simvastatin [Zocor] 20 mg PO HS Enalapril [Vasotec] 20 mg PO QAM Aspirin EC [Ecotrin Low Dose] 81 mg PO DAILY Discharge Medication List Enalapril [Vasotec] 10 mg PO HS 10/14/13 [History] Cholecalciferol [Vitamin D3] 1,000 unit PO HS 08/09/16 [History] Multivitamins, Thera [Multivitamin (formulary)] 1 tab PO HS 08/09/16 [History] Aspirin EC [Ecotrin Low Dose] 81 mg PO DAILY 01/10/18 [History] Enalapril [Vasotec] 20 mg PO [facility] 01/10/18 [History] Simvastatin [Zocor] 20 mg PO HS 01/10/18 [History]
[2018-02-24 08:57] VITALS: TEMP 97
[2018-02-24 09:04] LABS: ALT 31 U/L (9-52); AST 26 U/L (14-36); Albumin 3.1 g/dL (3.5-5.0); Alkaline Phosphatase 63 U/L (38-126); Anion Gap 9 mmol/L; Blood Urea Nitrogen 14 mg/dL (7-17); Calcium 8.5 mg/dL (8.4-10.2); Carbon Dioxide 26 mmol/L (22-30); Chloride 106 mmol/L (98-107); Glucose 111 mg/dL (74-99); Potassium 4.3 mmol/L (3.5-5.1); Sodium 141 mmol/L (137-145); Total Bilirubin 0.3 mg/dL (0.2-1.3); Total Protein 5.4 g/dL (6.3-8.2)
[2018-02-24 10:17] VITALS: BP 142/63; PULSE 59
== END 2018-02-24 10:49 | disposition home or self-care (01) ==
LOC: OR 05:37
PROVIDERS: ATTEND Surgery Plastic and Reconstructive Surgery
DX: K80.10 Calculus of gallbladder with chronic cholecystitis without obstruction (principal); K66.0 Peritoneal adhesions (postprocedural) (postinfection); E78.5 Hyperlipidemia, unspecified; I11.9 Hypertensive heart disease without heart failure; M06.9 Rheumatoid arthritis, unspecified; M41.9 Scoliosis, unspecified; M54.30 Sciatica, unspecified side; Z79.82 Long term (current) use of aspirin; Z79.899 Other long term (current) drug therapy; Z85.3 Personal history of malignant neoplasm of breast; Z88.1 Allergy status to other antibiotic agents; Z88.5 Allergy status to narcotic agent; Z91.048 Other nonmedicinal substance allergy status
CPT/HCPCS: 88304; 80053; 85027; 47562; J2250; J1644; J1100; J2710; J2405; J2001; J3010; J1885; J1170; J0330; J2704; J0690

== ENCOUNTER 2018-04-14 22:03 | Emergency (ER) | payer OTHER ==
--- NOTE | 2018-04-15 02:04 | ED ---
Skin/Abscess/FB HPI - General Chief complaint: Skin/Abscess/Foreign Body Stated complaint: Female Time Seen by Provider: 04/15/18 00:53 Source: patient Mode of arrival: ambulatory Limitations: no limitations - History of Present Illness Initial comments: This patient is 62-year-old woman who presents to have evaluation of the biopsy site that started bleeding tonight. The patient states that she underwent biopsy in the clinic of a suspicious skin lesion. The lesion is located in the perineal area. She states that was approximately 4 PM. She is doing well until tonight when she use the bathroom and after wiping the area she noted there was bleeding. 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 She denies any symptoms or signs of anemia, including no lightheadedness, chest pain, dyspnea, palpitations, diaphoresis, or to stasis. complaint: other -: hour(s) Tetanus Up to Date: yes Location: genitals Severity: mild Quality: other (Bleeding) Consistency: now resolved Improves with: none Worsens with: none Context: other Associated symptoms: denies other symptoms - Related Data Home Medications Medication Instructions Recorded Confirmed Enalapril [Vasotec] 10 mg PO HS 10/14/13 02/24/18 Cholecalciferol [Vitamin D3] 1,000 unit PO HS 08/09/16 02/24/18 Multivitamins, Thera [Multivitamin 1 tab PO HS 08/09/16 02/24/18 (formulary)] Aspirin EC [Ecotrin Low Dose] 81 mg PO DAILY 01/10/18 02/24/18 Enalapril [Vasotec] 20 mg PO QA 01/10/18 02/24/18 Simvastatin [Zocor] 20 mg PO HS 01/10/18 02/24/18 Previous Rx's Medication Instructions Recorded Ibuprofen [Motrin] 600 mg PO Q8HR PRN #30 tab 02/24/18 Allergies Allergy/AdvReac Type Severity Reaction Status Date / Time azithromycin Allergy Rash/Hives Verified 04/14/18 22:47 [From Zithromax Z-Jarred] codeine Allergy Rash/Hives Verified 04/14/18 22:47 SURGICAL TAPE Allergy REDNESS Uncoded 04/14/18 22:47 Review of Systems ROS Statement: Those systems with pertinent positive or pertinent negative responses have been documented in the HPI. ROS Other: All systems not noted in ROS Statement are negative. Constitutional: Denies: fever, chills, weakness Respiratory: Denies: dyspnea Cardiovascular: Denies: chest pain, palpitations Skin: Reports: as per HPI Neurological: Denies: weakness Hematological/Lymphatic: Denies: easy bleeding Past Medical History Past Medical History: Cancer, Hyperlipidemia, Hypertension, Rheumatoid Arthritis (RA) Additional Past Medical History / Comment(s): BREAST CANCER, RIGHT: 2005 OR 2007 , LEFT: 2017. scoliosis and sciaticca. degenerative disc disease History of Any Multi-Drug Resistant Organisms: None Reported Past Surgical History: Cholecystectomy Additional Past Surgical History / Comment(s): bunion. breast cancer: right 2005 or 2007, left 2017 Past Psychological History: No Psychological Hx Reported Smoking Status: Never smoker Past Alcohol Use History: None Reported Past Drug Use History: None Reported - Past Family History Father Additional Family Medical History / Comment(s): skin Mother Additional Family Medical History / Comment(s): parkinson's disease. heart disease Brother(s) Additional Family Medical History / Comment(s): polio. emphysema General Exam Limitations: no limitations General appearance: alert, in no apparent distress Head exam: Present: atraumatic, normocephalic Respiratory exam: Present: normal lung sounds bilaterally. Absent: respiratory distress, wheezes, rales, rhonchi, stridor Cardiovascular Exam: Present: regular rate, normal rhythm, normal heart sounds. Absent: systolic murmur, diastolic murmur, rubs, gallop GI/Abdominal exam: Present: soft. Absent: distended, tenderness, guarding, rebound Neurological exam: Present: alert Skin exam: Present: warm, dry, intact, normal color, other (The patient does have a small biopsy site in the perineum with fresh clot but no active bleeding. ). Absent: rash Course Vital Signs 04/14/18 04/15/18 04/15/18 22:44 01:22 02:47 Temperature 98.2 F 97.3 F L 97.8 F Pulse Rate 77 66 77 Respiratory 18 16 18 Rate Blood Pressure 138/89 157/84 155/75 O2 Sat by Pulse 100 99 98 Oximetry Medical Decision Making - Medical Decision Making Discussed appropriate wound care and follow-up. Discussed return parameters Disposition Clinical Impression: Visit for wound check Disposition: HOME SELF-CARE Condition: Good Instructions: Puncture Wound (DC) Is patient prescribed a controlled substance at d/c from ED?: No Referrals: Stephanie Beaver MD [Primary Care Provider] - 1-2 days
[2018-04-15 02:49] VITALS: BP 155/75; PULSE 77; RESP 18; TEMP 97.8
== END 2018-04-15 02:48 | disposition home or self-care (01) ==
LOC: EC 22:03
DX: Z48.817 Encounter for surgical aftercare following surgery on the skin and subcutaneous tissue (principal); E78.5 Hyperlipidemia, unspecified; I10 Essential (primary) hypertension; Z85.3 Personal history of malignant neoplasm of breast; Z90.49 Acquired absence of other specified parts of digestive tract; Z98.890 Other specified postprocedural states; Z79.82 Long term (current) use of aspirin; Z79.899 Other long term (current) drug therapy; Z88.1 Allergy status to other antibiotic agents; Z88.5 Allergy status to narcotic agent; Z91.048 Other nonmedicinal substance allergy status

== ENCOUNTER → 2018-04-23 | Outpatient (CLI) | payer OTHER | END | disposition home or self-care (01) | LOC: LABWHC1 16:46 | PROVIDERS: ATTEND Nurse Practitioner Acute Care | DX: M54.2 Cervicalgia (principal) | CPT/HCPCS: 36415; 82565; 84520 ==

== ENCOUNTER → 2018-04-24 | Outpatient (CLI) | payer OTHER ==
--- NOTE | 2018-04-25 02:02 | MR ---
EXAMINATION TYPE: MR brain/cspine wo/w DATE OF EXAM: 04/24/2018 COMPARISON: Brain 09/27/2017 HISTORY: Headaches and neck stiffness. TECHNIQUE: Multiplanar, multisequence images of the brain and brainstem is performed without and with IV contras t, utilizing 7.5 mL intravenous . On the T2 and FLAIR images there are scattered small foci of increased signal at the devine-white matte r junction of both cerebral hemispheres. These measure up to 5 mm. The total lumbar is approximately 15. The ventricles of normal size. There is no midline shift. There is no mass effect. There is no ev idence of cortical infarct. There is no evidence of intracranial hemorrhage. Sella turcica appears no rmal. Brainstem is intact. Corpus callosum is intact. Contrast images show no pathologic enhancement. Pituitary stalk appears normal. Optic chiasm appears normal. There is normal contrast opacification of the venous sinuses. Cervical vertebra have normal alignment. There is moderate narrowing of the C5-6 disc space. The othe r disc spaces are more normal. There is posterior endplate spur formation from see 3 to C6. There is developmentally adequate spinal canal. I see no evidence of cervical cord edema. Canal measures almos t 8 mm at C5-6 at the narrowest point. Canal measures 8 mm at C3-4. There is no fracture. The brainst em is intact. Posterior elements are intact. Contrast images show no pathologic enhancement. There is no cervical paraspinal mass. IMPRESSION: Multiple white matter high signal foci at the devine-white matter junction as above appear unchanged compared to old exam. This probably relates to chronic small vessel ischemia. No acute intr acranial abnormality. Moderate spondylosis at C5-6. Spinal canal measures 8 mm at C3-4 and C5-6. No fracture. No significan t spinal stenosis.
== END ==
LOC: RADMRIMAIN 14:53
PROVIDERS: ATTEND Nurse Practitioner Acute Care
DX: R90.89 Other abnormal findings on diagnostic imaging of central nervous system (principal); M47.816 Spondylosis without myelopathy or radiculopathy, lumbar region
CPT/HCPCS: 70553; 72156; A9585

== ENCOUNTER → 2018-05-02 | Outpatient (CLI) | payer OTHER ==
[2018-05-02 16:51] LABS: LDL Cholesterol,Calculated 87.6 mg/dL (0.0-131.0); VLDL Calculation 19.4 mg/dL (5.00-40.00)
== END | disposition home or self-care (01) ==
LOC: LABWHC1 08:21
PROVIDERS: ATTEND Psychiatry & Neurology Neurology
DX: G45.9 Transient cerebral ischemic attack, unspecified (principal)
CPT/HCPCS: 36415; 80061; 83090

== ENCOUNTER → 2018-05-02 | Outpatient (CLI) | payer OTHER ==
--- NOTE | 2018-05-02 09:44 | MM ---
Reason for exam: follow-up at short interval from prior study. Last mammogram was performed 6 months ago. History: Patient is postmenopausal, has history of breast cancer at age 46, has history of high-risk lesion on a previous biopsy at age 46, and had first child at age 30. Benign MG pre op needle loc LT of the left breast, August 14, 2016. Malignant MG stereo VAD BX LT of the left breast, June 21, 2016. High risk stereotactic core biopsy of the right breast, November 18, 2001. Lumpectomy of the right breast, 2001. Benign excisional biopsy of the left breast, July 17, 1999. Core biopsy of the right breast. Radiation therapy of the right breast. Physical Findings: Nurse did not find any significant physical abnormalities on exam. MG Diagnostic Mammo w CAD SHIRAZ Bilateral CC and MLO view(s) were taken. Prior study comparison: October 29, 2017, left breast MG diagnostic mammo LT w CAD. April 29, 2017, bilateral MG diagnostic mammo w CAD SHIRAZ. The breast tissue is heterogeneously dense. This may lower the sensitivity of mammography. Finding: There are segmental course calcifications in the upper outer quadrant, posterior position of the left breast. Post surgical changes in the left breast. These results were verbally communicated with the patient and result sheet given to the patient on 05/02/18. ASSESSMENT: Probably benign, BI-RAD 3 RECOMMENDATION: Follow-up diagnostic mammogram of the left breast in 3 months.
== END | disposition home or self-care (01) ==
LOC: RADMAMWWP 08:40
PROVIDERS: ATTEND Surgery
DX: R92.8 Other abnormal and inconclusive findings on diagnostic imaging of breast (principal)
CPT/HCPCS: 77066

== ENCOUNTER → 2018-05-09 | Outpatient (CLI) | payer OTHER ==
[2018-05-09 09:12] VITALS: BP 131/75; PULSE 66; RESP 18; TEMP 98; BMI 22.5
--- NOTE | 2018-05-09 09:44 | P.PN ---
Subjective Progress Note Date: 05/09/18 Principal diagnosis: Bilateral breast cancer, right side approximately 16 years ago, left side approximately one year ago Betty is a 62-year-old white female who presents for breast evaluation. She is status post right breast lumpectomy with radiation therapy approximately 15 years ago. She was approximately 46 at the time of that diagnosis. She did not have any chemotherapy or hormonal therapy for the right side of the breast. Approximately one year ago she was treated with a left breast lumpectomy and radiation therapy no chemo or hormonal therapy. The patient had a mammogram performed in April 2017 which was bilateral felt to be benign but a diagnostic mammogram of the left breast in 6 months time was recommended. She has most recently had a bilateral mammogram performed on [id number]. In this mammogram there were no lesions of concern noted in the right breast. However in the left breast there are segmental increased calcifications in the upper outer quadrant area which are some concern. The patient does not feel anything of concern in her breast. She has no nipple discharge or complaints. She did have genetic testing done in the past was negative for the BRCA1 gene. Family History: patient: bilateral breast cancer father: skin cancer sister: ovarian cancer Past Surgical History: 1. bilateral breast lumpectomy/left sentinal node 2. bunion surgery 3. gallaldder past Medical History: 1. hyperlipidemia 2. HRN 3. RA 4. "brain lesions" being followed not sure of the cause Social History: smoke: none alcohol: none drugs: none ROS: HEENT: none lungs: none heart: HTN GI: diverticuli : none Musculoskeletal: Arthritis Psychologic: Negative Objective - Vital Signs Vital signs: Vital Signs Temp 98.0 F 05/09/18 09:07 Pulse 66 05/09/18 09:07 Resp 18 05/09/18 09:07 BP 131/75 05/09/18 09:07 Pulse Ox 96 05/09/18 09:07 Intake & Output 05/08/18 05/09/18 05/09/18 18:59 06:59 18:59 Weight 65.317 kg - Exam BMI 22.6 - Constitutional General appearance: Present: average body habitus, cooperative - EENT Eyes: Present: EOMI, dentition normal ENT: Present: hearing grossly normal - Neck Neck: Present: normal ROM - Respiratory Respiratory: bilateral: CTA, negative: diminished, dullness, rales, rhonchi, wheezing, prolonged expiration, prolonged inspiration - Cardiovascular Rhythm: regular Heart sounds: normal: S1, S2 - Gastrointestinal General gastrointestinal: Present: soft - Musculoskeletal Musculoskeletal: Present: gait normal - Psychiatric Psychiatric: Present: A&O x's 3, appropriate affect, intact judgment & insight - Additional findings Additional findings: Breast examination: Right breast: Scar from prior lumpectomy multiple positional exam no dominant masses or nodules of concern Right axilla: No adenopathy of concern Left breast: Well-healed scar from prior lumpectomy, BioSorb is still palpable with some scar changes in the area of the lumpectomy, multiple positional exam no dominant masses or nodules of concern Left axilla: No adenopathy of concern Assessment and Plan Assessment: Impression: 1. Prior history of bilateral breast cancers 2. New mammographic abnormality left breast upper outer quadrant. 3. Hypertension 4. Arthritis Plan: 1. Stereotactic core biopsy of 2 areas in the right upper outer quadrant region , this was after review of radiographs with Dr. Germain 2. Medical management of medical conditions Risk and benefits of stereotactic biopsy were discussed with the patient and she agrees and this will be scheduled in the near future. Cc: Dr. Kitchen
== END | disposition home or self-care (01) ==
LOC: WWCWWP 08:55
PROVIDERS: ATTEND Surgery
DX: Z53.9 Procedure and treatment not carried out, unspecified reason (principal)

== ENCOUNTER → 2018-08-06 | Outpatient (CLI) | payer SELFPAY ==
--- NOTE | 2018-08-07 08:22 | MM ---
Reason for exam: follow-up at short interval from prior study. Last mammogram was performed 3 months ago. History: Patient is postmenopausal, has history of breast cancer at age 46, has history of high-risk lesion on a previous biopsy at age 46, and had first child at age 30. Benign MG pre op needle loc LT of the left breast, August 14, 2016. Malignant MG stereo VAD BX LT of the left breast, June 21, 2016. High risk stereotactic core biopsy of the right breast, November 18, 2001. Lumpectomy of the right breast, 2001. Benign excisional biopsy of the left breast, July 17, 1999. Core biopsy of the right breast. Radiation therapy of the right breast. Physical Findings: Nurse did not find any significant physical abnormalities on exam. MG Diagnostic Mammo LT w CAD CC and MLO view(s) were taken of the left breast. Prior study comparison: May 02, 2018, bilateral MG diagnostic mammo w CAD SHIRAZ. October 29, 2017, left breast MG diagnostic mammo LT w CAD. The breast tissue is heterogeneously dense. This may lower the sensitivity of mammography. Post operative distortion left breast. No masses seen. These results were verbally communicated with the patient and result sheet given to the patient on 08/06/18. ASSESSMENT: Benign, BI-RAD 2 RECOMMENDATION: Follow-up diagnostic mammogram of both breasts in 9 months. Back on schedule for April 2019.
== END | disposition home or self-care (01) ==
LOC: RADMAMWWP 15:14
PROVIDERS: ATTEND Radiology Radiation Oncology
DX: D05.12 Intraductal carcinoma in situ of left breast (principal); Z17.0 Estrogen receptor positive status [ER+]
CPT/HCPCS: 77065

== ENCOUNTER → 2018-09-25 | Outpatient (CLI) | payer MEDICARE, OTHER ==
[2018-09-25 10:51] VITALS: BP 158/89; PULSE 67; RESP 16; TEMP 97.6; BMI 22.7
--- NOTE | 2018-09-25 11:13 | P.PN ---
Subjective Progress Note Date: 09/25/18 Principal diagnosis: Bilateral breast cancer The patient is a 62-year-old white female who is status post right breast lumpectomy with radiation approximately 15 years ago. She was approximately 2 at the time of the diagnosis. She did not have any chemotherapy or hormonal therapy for the right breast cancer. The patient then in approximately 2016 underwent a left breast lumpectomy and radiation therapy again no chemo or hormonal therapy were administered. The patient had a mammogram performed in April 2018 had a bilateral mammogram performed and although there were no lesions of concern in the right breast there was some segmental increased calcifications in the upper outer quadrant area of the left breast and stereotactic core biopsy was recommended. The patient had some insurance problems and therefore the stereotactic core biopsy was not done. The patient returned in July 2018 and at that time a repeat left breast mammogram was performed which did not show any specific lesion of concern it was considered to be a benign BIRADS 2 and follow-up bilateral mammogram in 9 months time is recommended. family history: 1. father: skin cancer 2. sister: ovarian Hormonal history: Menarche: 11 Pregnancies:1, 1child at 33, breast fed: none menopasue: 48 BCP: none hormones: none Past surgical history: 1. Bilateral breast lumpectomy and left sentinel node biopsy 2. Bunion surgery 3. Cholecystectomy Past medical history: 1. Hyperlipidemia 2. Rheumatoid arthritis 3.mini strokes 4. HTN Social history: Smoke: Negative Alcohol: Negative Drugs: Negative Review of systems: HEENT: Blurred vision negative Lungs: Negative Heart: Negative GI: diverticuli Gu: none Musculoskeletal: Arthritis Neurologic: Mini strokes/TIA Psychologic: Negative Integument: Rash following with primary care physician Social history: Smoke: Negative Alcohol: Negative Drugs: Negative Objective - Vital Signs Vital signs: Vital Signs Temp 97.6 F 09/25/18 10:43 Pulse 67 09/25/18 10:43 Resp 16 09/25/18 10:43 BP 158/89 09/25/18 10:43 Pulse Ox 98 09/25/18 10:43 Intake & Output 09/24/18 09/25/18 09/25/18 18:59 06:59 18:59 Weight 65.771 kg - Exam BMI 22.7 - Constitutional General appearance: Present: average body habitus - EENT Eyes: Present: EOMI ENT: Present: hearing grossly normal - Neck Neck: Present: normal ROM - Respiratory Respiratory: bilateral: CTA - Cardiovascular Rhythm: regular Heart sounds: normal: S1, S2 - Gastrointestinal Gastrointestinal Comment(s): No guarding or rebound General gastrointestinal: Present: soft - Integumentary Integumentary Comment(s): skin rash over chin Integumentary: Present: normal turgor - Musculoskeletal Musculoskeletal: Present: gait normal - Psychiatric Psychiatric: Present: A&O x's 3, appropriate affect, intact judgment & insight - Additional findings Additional findings: breast exam: Right breast: Multi-positional exam well-healed scar from prior lumpectomy, no dominant masses or nodules of concern Right axilla: No adenopathy of concern Left breast: Multi-positional exam reveals scar from prior lumpectomy, fibrocystic changes, scar tissue. Prior lumpectomy Left axilla: No adenopathy of concern Assessment and Plan Assessment: Impression: 1. Status post bilateral lumpectomies for bilateral breast cancers 2. Hypertension 3. Arthritis 4. No evidence of recurrent cancer 5. Family history of cancer 6. Skin rash/hypersensitivity reaction over chin Plan: 1. Review radiographs with radiology as per recommendation for a left breast mammogram and on this mammogram area does not seem to be identified 2. Medical management of medical conditions 3. Repeat bilateral mammogram in physician exam in [address] Beaver
== END ==
LOC: WWCWWP 09:45
PROVIDERS: ATTEND Surgery
DX: Z53.9 Procedure and treatment not carried out, unspecified reason (principal)

== ENCOUNTER → 2018-11-13 | Outpatient (CLI) | payer MEDICARE, OTHER ==
[2018-11-13 06:52] LABS: HCT 40.2 % (34.0-46.0); HGB 12.9 gm/dL (11.4-16.0); MCH 28.9 pg (25.0-35.0); MCHC 32.1 g/dL (31.0-37.0); Mean Platelet Volume 6.8; Platelet Count 356 k/uL (150-450); RBC 4.47 m/uL (3.80-5.40); RDW 12.5 % (11.5-15.5)
[2018-11-13 07:59] LABS: Appearance,Urine Clear (Clear); Bilirubin,Urine Negative (Negative); Blood,Urine Trace (Negative); Color,Urine Yellow; Glucose,Urine (UA) Negative (Negative); Ketones,Urine Negative (Negative); Leukocyte Esterase,Urine Large (Negative); Mucus,Urine Rare /hpf; Nitrite,Urine Negative (Negative); PH, Urine 5.5 (5.0-8.0); Protein,Urine Negative (Negative); RBC,Urine 2 /hpf (0-5); Specific Gravity,Urine 1.015 (1.001-1.035); Squamous Epithelial Cell,Urine 2 /hpf (0-4); Urobilinogen,Urine <2.0 mg/dL (<2.0); WBC,Urine 1 /hpf (0-5)
[2018-11-13 11:16] LABS: African American GFR (CKD) 110.9 (60.0-200.0); Albumin 4.2 g/dL (3.80-4.90); Albumin/Globulin Ratio 2.33 (1.60-3.17); Anion Gap 9.4 mmol/L (4.00-12.00); BUN/Creat Ratio 26.67 Ratio (12.00-20.00); Calcium 9.3 mg/dL (8.7-10.3); Carbon Dioxide 29.6 mmol/L (21.6-31.8); Globulin 1.8 g/dL (1.6-3.3); LDL Cholesterol,Calculated 97.4 mg/dL (0.0-131.0); Potassium 4.2 mmol/L (3.5-5.5); Total Bilirubin 0.4 mg/dL (0.2-1.2); VLDL Calculation 14.6 mg/dL (5.00-40.00)
[2018-11-13 12:37] LABS: Hemoglobin A1C 6.3 % (4.0-6.0)
== END | disposition home or self-care (01) ==
LOC: LABWHC1 06:34
PROVIDERS: ATTEND Family Medicine
DX: Z51.81 Encounter for therapeutic drug level monitoring (principal); Z79.899 Other long term (current) drug therapy
CPT/HCPCS: 36415; 80053; 80061; 81001; 82550; 83036; 84443; 85027

== ENCOUNTER → 2018-12-19 | Outpatient (CLI) | payer MEDICARE, OTHER ==
--- NOTE | 2018-12-19 09:00 | US ---
EXAMINATION TYPE: US duplex aorta DATE OF EXAM: 12/19/2018 COMPARISON: NONE CLINICAL HISTORY: Z82.49 FAM HX OF ISCHEMIC HEART DISEASE. Screening EXAM MEASUREMENTS: Abdominal Aorta: Proximal: 1.9 x 1.5cm Mid: 1.7 x 1.3cm Distal: 1.4 x 1.3cm Bifurcation: RT: 0.8 x 0.7cm LT: 0.9 x 0.7cm No evidence of AAA at this time IMPRESSION: No sonographic evidence of abdominal aortic aneurysm and the visualized portions of the a bdominal aorta.
--- NOTE | 2018-12-19 09:01 | US ---
EXAMINATION TYPE: US carotid duplex BILAT DATE OF EXAM: 12/19/2018 COMPARISON: NONE CLINICAL HISTORY: Z86.73 PERSONAL HX TIA. History of TIA EXAM MEASUREMENTS: RIGHT: Peak Systolic Velocity (PSV) cm/sec ----- Right CCA: 106.9 ----- Right ICA: 115.7 ----- Right ECA: 90.4 ICA/CCA ratio: 1.1 RIGHT: End Diastole cm/sec ----- Right CCA: 34.9 ----- Right ICA: 48.8 ----- Right ECA: 10.9 LEFT: Peak Systolic Velocity (PSV) cm/sec ----- Left CCA: 127.6 ----- Left ICA: 124.3 ----- Left ECA: 106.5 ICA/CCA ratio: 1.0 LEFT: End Diastole cm/sec ----- Left CCA: 37.0 ----- Left ICA: 53.2 ----- Left ECA: 19.2 VERTEBRALS (direction of flow): Right Vertebral: Antegrade Left Vertebral: Antegrade Rhythm: Normal Mild plaque bilateral bifurcations. No evidence of significant stenosis IMPRESSION: Mild degree of grayscale atheromatous plaquing with no sonographically evident hemodynam ically significant stenosis within either visualized carotid arterial system. Criteria for Assigning % of Stenosis / Diameter reduction (Estimation based on the indirect measurements of the internal carotid artery velocities (ICA PSV). 1. Normal (no stenosis)=ICA PSV < 125 cm/s: ratio < 2.0: ICA EDV<40 cm/s. 2. Less than 50% stenosis=ICA PSV < 125 cm/s: ratio < 2.0: ICA EDV<40 cm/s. 3. 50 to 69% stenosis=ICA PSV of 125 to 230 cm/s: ration 2.0 ? 4.0: ICA EDV 40-100 cm/s. 4. Greater than 70% stenosis to near occlusion= ICA PSV > 230 cm/s: ratio > 4.0: ICA EDV > 100 cm/s. 5. Near occlusion= ICA PSV velocities may be low or undetectable: variable ratio and ICA EDV. 6. Total occlusion=unable to detect flow.
== END | disposition home or self-care (01) ==
LOC: RADUSWWP 07:57
PROVIDERS: ATTEND Family Medicine
DX: I65.23 Occlusion and stenosis of bilateral carotid arteries (principal); Z86.73 Personal history of transient ischemic attack (TIA), and cerebral infarction without residual deficits; Z82.49 Family history of ischemic heart disease and other diseases of the circulatory system; Z13.6 Encounter for screening for cardiovascular disorders
CPT/HCPCS: 93880; 93979

== ENCOUNTER → 2019-01-06 | Outpatient (CLI) | payer MEDICARE, OTHER ==
--- NOTE | 2019-01-07 00:13 | MR ---
EXAMINATION TYPE: MR brain/lspine wo/w con DATE OF EXAM: 01/06/2019 HISTORY: M54.10 Radiculopathy / M54.5 Lumbago, White Matter disease CONTRAST: Standard multiplanar, multisequence MRI departmental protocol utilizing 6.5 mL intravenous Gadavist g adolinium contrast. FINDINGS: Comparison brain 04/24/2018. Ventricles have normal size. There is no mass effect nor midline shift. There is no sign of intracran ial hemorrhage. There is no evidence of cortical infarct. There are multiple small scattered foci of white matter increased signal on the T2 and FLAIR images in the white matter of the frontal and tempo ral parietal lobes. Total number is approximately 20 and the largest lesion measures 5 mm. Brainstem appears intact. Corpus callosum is intact. Sella turcica appears normal. There is no evidence of post erior fossa mass. Internal auditory canals appear normal. Contrast images show no pathologic enhancem ent. There is normal contrast opacification of the venous sinuses. Comparison MR scan lumbar spine 09/27/2017. Lumbar vertebra have normal alignment. There is degenerative disc space narrowing throughout the lumb ar spine with decreased signal and spur formation of the endplates. There is developmentally large sp inal canal and no spinal stenosis. Lumbar nerve roots appear normal. The neuroforamina are fairly wel l-maintained. There is no compression fracture. There is no lumbar paraspinal mass. There is no patho logic enhancement. Facet joints appear intact. IMPRESSION: Multiple scattered white matter lesions as above are unchanged compared to old exam and could relate to chronic small vessel ischemia or demyelinating disease. No pathologic enhancement. No cortical inf arct. Multilevel spondylotic changes in the lumbar spine. No spinal stenosis. No fracture. Small posterior stable L5-S1 lumbar disc herniation. No significant change.
== END ==
LOC: RADMRIMAIN 15:08
PROVIDERS: ATTEND Psychiatry & Neurology Neurology
DX: M51.27 Other intervertebral disc displacement, lumbosacral region (principal); M47.816 Spondylosis without myelopathy or radiculopathy, lumbar region; G93.9 Disorder of brain, unspecified
CPT/HCPCS: 70553; 72158; A9585

== ENCOUNTER → 2019-06-11 | Outpatient (CLI) | payer MEDICARE, OTHER ==
--- NOTE | 2019-06-12 09:30 | MM ---
Reason for exam: screening (asymptomatic). Last mammogram was performed 10 months ago. History: Patient is postmenopausal, has history of breast cancer at age 46, has history of high-risk lesion on a previous biopsy at age 46, and had first child at age 30. Benign MG pre op needle loc LT of the left breast, August 14, 2016. Malignant MG stereo VAD BX LT of the left breast, June 21, 2016. High risk stereotactic core biopsy of the right breast, November 18, 2001. Lumpectomy of the right breast, 2001. Benign excisional biopsy of the left breast, July 17, 1999. Core biopsy of the right breast. Radiation therapy of the right breast. Physical Findings: A clinical breast exam by your physician is recommended on an annual basis and results should be correlated with mammographic findings. MG Diagnostic Mammo w CAD SHIRAZ Bilateral CC and MLO view(s) were taken. Prior study comparison: August 06, 2018, left breast MG diagnostic mammo LT w CAD. May 02, 2018, bilateral MG diagnostic mammo w CAD SHIRAZ. The breast tissue is heterogeneously dense. This may lower the sensitivity of mammography. No significant new findings when compared with previous films. These results were verbally communicated with the patient and result sheet given to the patient on 06/11/19. ASSESSMENT: Benign, BI-RAD 2 RECOMMENDATION: Follow-up diagnostic mammogram of both breasts in 1 year.
== END | disposition home or self-care (01) ==
LOC: RADMAMWWP 15:12
PROVIDERS: ATTEND Surgery
DX: Z08 Encounter for follow-up examination after completed treatment for malignant neoplasm (principal); Z85.3 Personal history of malignant neoplasm of breast
CPT/HCPCS: 77066

== ENCOUNTER → 2019-06-19 | Outpatient (CLI) | payer MEDICARE, OTHER ==
[2019-06-19 16:26] VITALS: BP 157/76; PULSE 72; RESP 16; TEMP 97.6
--- NOTE | 2019-06-19 16:33 | P.PN ---
Subjective Progress Note Date: 06/19/19 Principal diagnosis: bilateral breast cancer The patient is a 63-year-old white female who is status post right breast lumpectomy with radiation approximately 16 years ago. She was approximately 47 at the time of the diagnosis. She did not have any chemotherapy or hormonal therapy for the right breast cancer. The patient then in approximately 2016 underwent a left breast lumpectomy and radiation therapy again no chemo or hormonal therapy were administered. The patient declined hormonal therapy. The patient had a mammogram performed in April 2018 had a bilateral mammogram performed and although there were no lesions of concern in the right breast there was some segmental increased calcifications in the upper outer quadrant area of the left breast and stereotactic core biopsy was recommended. The patient had some insurance problems and therefore the stereotactic core biopsy was not done. The patient returned in July 2018 and at that time a repeat left breast mammogram was performed which did not show any specific lesion of concern it was considered to be a benign BIRADS 2 and follow-up bilateral mammogram in 9 months time is recommended. The patient has no complaints related to her breast. A bilateral mammogram was preformed on 06-11-19. Patient is not complaining of the masses lumps or nodules of concern in either breast. left breast: DCIS G2, ER/LA+, no cancer in lumpectomy specimen, SNB done and (-) family history: 1. father: skin cancer 2. sister: ovarian Hormonal history: Menarche: 11 Pregnancies:1, 1child at 33, breast fed: none menopasue: 48 BCP: none hormones: none Past surgical history: 1. Bilateral breast lumpectomy and left sentinel node biopsy 2. Bunion surgery 3. Cholecystectomy 4. gallbladder Past medical history: 1. Hyperlipidemia 2. Rheumatoid arthritis 3. mini strokes 4. HTN 5. uterus dropping/ bladder incontinence Social history: Smoke: Negative Alcohol: Negative Drugs: Negative Review of systems: HEENT: ? glaucoma Lungs: Negative Heart: Negative GI: diverticuli Gu: uterus dropping/bladder incontence Musculoskeletal: Arthritis Neurologic: Mini strokes/TIA Psychologic: Negative Integument: none Social history: Smoke: Negative Alcohol: Negative Drugs: Negative Objective - Exam BMI 22.2 - Constitutional General appearance: Present: average body habitus - EENT Eyes: Present: EOMI ENT: Present: hearing grossly normal - Neck Details: no adenopathy of concern Neck: Present: normal ROM - Respiratory Respiratory: bilateral: CTA - Cardiovascular Rhythm: regular Heart sounds: normal: S1, S2 - Gastrointestinal General gastrointestinal: Present: normal bowel sounds, soft - Integumentary Integumentary: Present: normal turgor - Musculoskeletal Musculoskeletal: Present: gait normal - Psychiatric Psychiatric: Present: A&O x's 3, appropriate affect, intact judgment & insight - Additional findings Additional findings: breast exam: Bra: 36C Inspection: Well-healed scars bilateral from bilateral lumpectomies, no skin lesions of concern Palpation: Right breast: Multiple positional exam no dominant masses or nodules of concern, fibrocystic changes, postoperative changes noted Right axilla: No adenopathy of concern Left breast: Multi-positional exam reveals the Biozorb is still palpable in the inner upper aspect of the breast, fibrocystic changes otherwise no dominant masses or nodules of concern Left axilla: No adenopathy of concern Assessment and Plan Assessment: Impression: 1. Status post bilateral lumpectomy and radiation left breast stage 0, right breast pathology unknown 2. Patient opted not to take hormonal therapy for either cancer 3. She had chemo therapy after the right breast cancer; and radiation therapy after both lumpectomys Plan: 1. Physician exam in 6 months for surveillance 2. Patient to call if she notes anything of concern Cc: Dr. Magui Mejia Encounter 20 minutes, > 50% of time in planning and counselling Time with Patient: Less than 30
== END | disposition home or self-care (01) ==
LOC: WWCWWP 16:04
PROVIDERS: ATTEND Surgery
DX: Z53.9 Procedure and treatment not carried out, unspecified reason (principal)

== ENCOUNTER → 2019-12-18 | Outpatient (CLI) | payer MEDICARE, OTHER ==
[2019-12-18 14:39] VITALS: BP 125/77; PULSE 67; RESP 18; TEMP 97.8
--- NOTE | 2019-12-18 14:57 | P.PN ---
Subjective Progress Note Date: 12/18/19 Principal diagnosis: bilateral breast cancer The patient is a 63-year-old white female who is status post right breast lumpectomy with radiation approximately 16 years ago. She was approximately 47 at the time of the diagnosis. She did not have any chemotherapy or hormonal therapy for the right breast cancer. The patient then in approximately 2016 underwent a left breast lumpectomy and radiation therapy again no chemo or hormonal therapy were administered. The patient declined hormonal therapy. The patient had a mammogram performed in April 2018 had a bilateral mammogram performed and although there were no lesions of concern in the right breast there was some segmental increased calcifications in the upper outer quadrant area of the left breast and stereotactic core biopsy was recommended. The patient had some insurance problems and therefore the stereotactic core biopsy was not done. The patient returned in July 2018 and at that time a repeat left breast mammogram was performed which did not show any specific lesion of concern it was considered to be a benign BIRADS 2 and follow-up bilateral mammogram in 9 months time is recommended. The patient has no complaints related to her breast. A bilateral mammogram was preformed on 06-11-19. This was benign BIRAD 2 repeat bilateral mammogram in 1 year. Patient is not complaining of the masses lumps or nodules of concern in either breast. left breast: DCIS G2, ER/ID+, no cancer in lumpectomy specimen, SNB done and (-) family history: 1. father: skin cancer 2. sister: ovarian Hormonal history: Menarche: 11 Pregnancies:1, 1child at 33, breast fed: none menopasue: 48 BCP: none hormones: none Past surgical history: 1. Bilateral breast lumpectomy and left sentinel node biopsy 2. Bunion surgery 3. Cholecystectomy 4. gallbladder 5. SANTY, no cancer Past medical history: 1. Hyperlipidemia 2. Rheumatoid arthritis 3. mini strokes 4. HTN 5. uterus dropping/ bladder incontinence Social history: Smoke: Negative Alcohol: Negative Drugs: Negative Review of systems: HEENT: ? glaucoma Lungs: Negative Heart: Negative GI: diverticuli Gu: uterus dropping/bladder incontence Musculoskeletal: Arthritis Neurologic: Mini strokes/TIA Psychologic: Negative Integument: none Social history: Smoke: Negative Alcohol: Negative Drugs: Negative Objective - Vital Signs Vital signs: Vital Signs Temp 97.8 F 07/31/20 14:38 Pulse 67 12/18/19 14:38 Resp 18 12/18/19 14:38 BP 125/77 12/18/19 14:38 Pulse Ox 98 12/18/19 14:38 Intake & Output 12/17/19 12/18/19 12/18/19 18:59 06:59 18:59 Weight 63.503 kg - Exam BMI 21.9 - Constitutional General appearance: Present: average body habitus - EENT Eyes: Present: EOMI ENT: Present: hearing grossly normal - Neck Neck: Present: normal ROM - Respiratory Respiratory: bilateral: CTA - Cardiovascular Rhythm: regular Heart sounds: normal: S1, S2 - Gastrointestinal General gastrointestinal: Present: normal bowel sounds, soft - Integumentary Integumentary: Present: normal turgor - Musculoskeletal Musculoskeletal: Present: gait normal - Psychiatric Psychiatric: Present: A&O x's 3, appropriate affect, intact judgment & insight - Additional findings Additional findings: breast exam: BRA: 34 B inspection: Deviation of the right nipple to of the lateral aspect, grade 2/3 ptosis bilateral, scarred tissue noted bilaterally palpation: Right breast multiple positional exam no dominant masses or nodules of concern, fibrocystic changes Right axilla: No adenopathy of concern Left breast: Well-healed scar from prior surgery multiple positional exam scar tissue from prior surgery no dominant masses or nodules of concern, fibrocystic changes Left axilla: No adenopathy of concern Assessment and Plan Assessment: Impression: 1. Status post bilateral breast lumpectomies and radiation therapy, left breast stage 0 right breast pathology unknown 2. Patient opted not to take hormonal therapy for either cancer 3. Patient had chemotherapy after the right breast cancer and radiation therapy after both lumpectomies 4. Hyperlipidemia 5. Rheumatoid arthritis 6. mini strokes 7. HTN 8. uterus dropping/ bladder incontinence/recent total abdominal hysterectomy Interventional biopsy at this time Plan: 1. Bilateral mammograms May 2020 2. Patient doesn't believe concern she should call me sooner 3. Follow-up after bilateral mammograms May 2020 4. Medical management of medical conditions Cc: Dr. Mejia encounter 30 minutes, > 50% of time in planning and counselling Time with Patient: Less than 30
== END | disposition home or self-care (01) ==
LOC: WWCWWP 14:23
PROVIDERS: ATTEND Surgery
DX: Z53.9 Procedure and treatment not carried out, unspecified reason (principal)

== ENCOUNTER → 2020-06-28 | Outpatient (CLI) | payer MEDICARE, OTHER ==
--- NOTE | 2020-06-29 09:23 | MM ---
Reason for exam: additional evaluation requested from prior study. Last mammogram was performed 1 year and 1 month ago. History: Patient is postmenopausal, has history of breast cancer at age 46, has history of high-risk lesion on a previous biopsy at age 46, and had first child at age 30. Benign MG pre op needle loc LT of the left breast, August 14, 2016. Malignant MG stereo VAD BX LT of the left breast, June 21, 2016. High risk stereotactic core biopsy of the right breast, November 18, 2001. Lumpectomy of the right breast, 2001. Benign excisional biopsy of the left breast, July 17, 1999. Core biopsy of the right breast. Radiation therapy of the right breast. Physical Findings: Nurse did not find any significant physical abnormalities on exam. MG 3D Diag Mammo W/Cad SHIRAZ Bilateral CC and MLO view(s) were taken. Prior study comparison: June 11, 2019, bilateral MG diagnostic mammo w CAD SHIRAZ. August 06, 2018, left breast MG diagnostic mammo LT w CAD. The breast tissue is heterogeneously dense. This may lower the sensitivity of mammography. Finding #1: Architectural distortion in the lower inner quadrant, posterior, middle position of the left breast consistent with known treatment changes. Finding #2: There are typically benign dystrophic, round, linear calcifications in both breasts. There is no discrete abnormality. These results were verbally communicated with the patient and result sheet given to the patient on 06/28/20. ASSESSMENT: Benign, BI-RAD 2 RECOMMENDATION: Follow-up diagnostic mammogram of both breasts in 1 year.
== END | disposition home or self-care (01) ==
LOC: RADMAMWWP 14:51
PROVIDERS: ATTEND Surgery
DX: R92.8 Other abnormal and inconclusive findings on diagnostic imaging of breast (principal); Z85.3 Personal history of malignant neoplasm of breast
CPT/HCPCS: 77066; G0279; 77062

== ENCOUNTER → 2020-07-08 | Outpatient (CLI) | payer MEDICARE, OTHER ==
[2020-07-08 16:40] VITALS: BP 146/85; PULSE 72; RESP 18; TEMP 98
--- NOTE | 2020-07-08 16:56 | P.PN ---
Subjective Progress Note Date: 07/08/20 Principal diagnosis: bilateral breast cancer bilateral breast cancer The patient is a 63-year-old white female who is status post right breast lumpectomy with radiation approximately 16 years ago. She was approximately 47 at the time of the diagnosis. She did not have any chemotherapy or hormonal therapy for the right breast cancer. The patient then in approximately 2016 underwent a left breast lumpectomy and radiation therapy again no chemo or hormonal therapy were administered. The patient declined hormonal therapy. The patient had a mammogram performed in April 2018 had a bilateral mammogram performed and although there were no lesions of concern in the right breast there was some segmental increased calcifications in the upper outer quadrant area of the left breast and stereotactic core biopsy was recommended. The patient had some insurance pro blems and therefore the stereotactic core biopsy was not done. The patient returned in July 2018 and at that time a repeat left breast mammogram was performed which did not show any specific lesion of concern it was considered to be a benign BIRADS 2 and follow-up bilateral mammogram in 9 months time is recommended. The patient has no complaints related to her breast. A bilateral mammogram was p reformed on 06-11-19. This was benign BIRAD 2 repeat bilateral mammogram in 1 year. Patient is not complaining of the masses lumps or nodules of concern in either breast. The patient has no lumps masses or nodules. She is concern in either breast. She had a bilateral mammogram performed and 2920 which was benign BIRADS 2. left breast: DCIS G2, ER/NE+, no cancer in lumpectomy specimen, SNB done and (-) family history: 1. father: skin cancer 2. sister: ovarian Hormonal history: Menarche: 11 Pregnancies:1, 1child at 33, breast fed: none menopasue: 48 BCP: none hormones: none Past surgical history: 1. Bilateral breast lumpectomy and left sentinel node biopsy 2. Bunion surgery 3. Cholecystectomy 4. gallbladder 5. SANTY, no cancer Past medical history: 1. Hyperlipidemia 2. Rheumatoid arthritis 3. mini strokes 4. HTN 5. uterus dropping/ bladder incontinence had a hysterectomy Social history: Smoke: Negative Alcohol: Negative Drugs: Negative Review of systems: HEENT: ? glaucoma Lungs: Negative Heart: Negative GI: diverticuli Gu: uterus dropping/bladder incontence Musculoskeletal: Arthritis Neurologic: Mini strokes/TIA Psychologic: Negative Integument: none Social history: Smoke: Negative Alcohol: Negative Drugs: Negative Objective - Vital Signs Vital signs: Vital Signs Temp 98.0 F 07/08/20 16:38 Pulse 72 07/08/20 16:38 Resp 18 07/08/20 16:38 BP 146/85 07/08/20 16:38 Pulse Ox 99 07/08/20 16:38 Intake & Output 07/07/20 07/08/20 07/08/20 18:59 06:59 18:59 Weight 64.41 kg - Exam BMI 22.2 - Constitutional General appearance: Present: average body habitus - EENT Eyes: Present: EOMI ENT: Present: hearing grossly normal - Respiratory Respiratory: bilateral: CTA - Cardiovascular Rhythm: regular Heart sounds: normal: S1, S2 - Gastrointestinal General gastrointestinal: Present: soft - Integumentary Integumentary: Present: normal turgor - Musculoskeletal Musculoskeletal: Present: gait normal - Psychiatric Psychiatric: Present: A&O x's 3, appropriate affect, intact judgment & insight - Additional findings Additional findings: breast exam: BRA: 34B inspection: Deviation of the right nipple to the lateral aspect, grade to see over 3 ptosis bilateral, scar tissue noted bilaterally Palpation: Right breast multiposition exam no dominant masses or nodules of concern, fibrocystic changes Right axilla: No adenopathy of concern Left breast reveals scar from prior surgery, multi-positional exam scar tissue from prior surgery no dominant masses or nodules of concern Left axilla: No adenopathy of concern Assessment and Plan Assessment: Impression: 1. Status post bilateral breast lumpectomies and radiation therapy, left breast stage 0, right breast pathology unknown 2. Patient opted not to have hormonal therapy for either breast Patient had chemotherapy after the right breast cancer and radiation therapy after both lumpectomies 4 hyperlipidemia 5 rheumatoid arthritis 6 mini strokes 7 hypertension 8 status post abdominal hysterectomy for uterine dropping Plan: 1. Bilateral mammogram in 1 year with physician exam 2. Physician exam in 6 months 3. Medical management of medical conditions Cc: Dr. Mejia Encounter 15 minutes, time spent in reviewing medical records, physical examination, and counseling.
== END | disposition home or self-care (01) ==
LOC: WWCWWP 15:49
PROVIDERS: ATTEND Surgery
DX: Z53.9 Procedure and treatment not carried out, unspecified reason (principal)

== ENCOUNTER → 2020-07-30 | Outpatient (CLI) | payer MEDICARE, OTHER ==
--- NOTE | 2020-07-30 09:24 | MR ---
EXAMINATION TYPE: MR brain wo/w con DATE OF EXAM: 07/30/2020 COMPARISON: 01/06/2019 HISTORY: MS follow up, mini strokes. TECHNIQUE: Multiplanar, multisequence images of the brain and brainstem is performed without contrast.. FINDINGS: On the T1-weighted sagittal images, the midline structures including the craniovertebral ju nction relationships are normal. The ventricles, basal cisterns and sulci over the convexities are within normal limits and there is n o mass effect or shift of the midline structures. There are multiple small focal abnormal areas of increased signal intensity scattered throughout the white matter of both cerebral hemispheres, predominantly in a periventricular location most consisten t with demyelinating plaques. There is no diffusion abnormality and therefore no evidence of an acute plaque. Compared to the prior study dated 01/06/2019, there has been no significant interval change i n the number or size of the lesions. The posterior fossa including the brainstem, fourth ventricle and cerebellar pontine angles appear no rmal. The intraorbital contents appear normal and symmetric. Visualized paranasal sinuses and mastoid air c ells are well aerated. IMPRESSION: Findings most consistent with demyelinating plaques unchanged compared to the prior study. There is n o evidence of acute abnormality.
== END ==
LOC: RADMRIMAIN 08:23
PROVIDERS: ATTEND Nurse Practitioner Acute Care
DX: G35 Multiple sclerosis (principal)
CPT/HCPCS: 70553; A9585

== ENCOUNTER 2020-09-07 09:07 | Day surgery (SDC) | payer MEDICARE, OTHER ==
[2020-08-11 12:50] VITALS: BMI 22.4
--- NOTE | 2020-09-07 08:29 | P.GSHP ---
History of Present Illness H&P Date: 09/07/20 CHIEF COMPLAINT: Colon screen HISTORY OF PRESENT ILLNESS: The patient is a 64-year-old female who presents for colon screen. Lower endoscopy was offered for further evaluation and management. PAST MEDICAL HISTORY: Please see list. PAST SURGICAL HISTORY: Please see list. MEDICATIONS: Please see list. ALLERGIES: Please see list. SOCIAL HISTORY: No illicit drug use FAMILY HISTORY: No reports of Crohn disease or ulcerative colitis. REVIEW OF ORGAN SYSTEMS: CONSTITUTIONAL: No reports of fevers or chills. PHYSICAL EXAM: VITAL SIGNS: Stable GENERAL: Well-developed pleasant in no acute distress. HEENT: No scleral icterus. Extraocular movements grossly intact. Moist buccal mucosa. NECK: Supple without lymphadenopathy. CHEST: Unlabored respirations. Equal bilateral excursions. CARDIOVASCULAR: Regular rate and rhythm. Distal 2+ pulses. ABDOMEN: Soft, nontender, nondistended. MUSCULOSKELETAL: No clubbing, cyanosis, or edema. ASSESSMENT: 1. Colon screen. PLAN: 1. Recommend proceeding with a lower endoscopy Past Medical History Past Medical History: Cancer, CVA/TIA, Hyperlipidemia, Hypertension, Rheumatoid Arthritis (RA) Additional Past Medical History / Comment(s): BREAST CANCER RIGHT:2001, LE FT:2017, Scoliosis, Sciatica, Degenerative Disc Disease, hx TIA X44, no effects.recent fall injury rt arm History of Any Multi-Drug Resistant Organisms: None Reported Past Surgical History: Breast Surgery, Cholecystectomy, Hysterectomy Additional Past Surgical History / Comment(s): Bunion surgery, bilateral breast biopsies. Past Anesthesia/Blood Transfusion Reactions: No Reported Reaction Smoking Status: Never smoker - Past Family History Father Additional Family Medical History / Comment(s): skin Mother Family Medical History: Neurologic Disorder Additional Family Medical History / Comment(s): Parkinson's Disease, Heart Disease. Brother(s) Family Medical History: COPD Additional Family Medical History / Comment(s): Polio, Emphysema. Sister(s) Family Medical History: Cancer Additional Family Medical History / Comment(s): Ovarian cancer. Medications and Allergies Home Medications Medication Instructions Recorded Confirmed Type Cholecalciferol [Vitamin D3] 1,000 unit PO HS 08/09/16 08/11/20 History Multivitamins, Thera [Multivitamin 1 tab PO HS 08/09/16 09/05/20 History (formulary)] Aspirin EC [Ecotrin Low Dose] 81 mg PO HS 01/10/18 09/05/20 History Enalapril [Vasotec] 10 mg PO BID 01/10/18 08/11/20 History [place]-3 Fatty Acids/Fish Oil [Fish 1 each PO HS 12/18/19 09/05/20 History Oil 1,000 mg Softgel] Atorvastatin [Lipitor] 10 mg PO HS 09/05/20 09/05/20 History Allergies Allergy/AdvReac Type Severity Reaction Status Date / Time azithromycin Allergy Rash/Hives Verified 09/05/20 08:46 [From Zithromax Z-Jarred] codeine Allergy Rash/Hives Verified 09/05/20 08:46 SURGICAL TAPE Allergy REDNESS Uncoded 09/05/20 08:46
[~2020-09-07 09:07] MED LIST changes: -HEPARIN SODIUM,PORCINE 5,000 UNIT/ML 1 ML VIAL SQ ONE; +LACTATED RINGERS 1,000 ML IV SCH; +LIDOCAINE 1% (10MG/ML) FOR IV START INTRADERMA PRN; -ceFAZolin IN SWFI 2 GM/20 ML SYRINGE IVP ONE
[2020-09-07 09:37] VITALS: TEMP 98.2
[2020-09-07] MEDS ORDERED: PROPOFOL 10 MG/ML 20 ML VIAL IV ONE (11:30)
[2020-09-07] MEDS ORDERED: LIDOCAINE 1% INJ 10MG/ML (20 ML MDV) ONE (11:30)
[2020-09-07 11:54] VITALS: RESP 16
--- NOTE | 2020-09-07 12:02 | P.PCN ---
Date of Procedure: 09/07/20 Description of Procedure: PREOPERATIVE DIAGNOSIS: Colonoscopy screening. Personal history colon polyps POSTOPERATIVE DIAGNOSIS: Severe sigmoid diverticulosis with redundancy OPERATION: Colonoscopy to the transverse colon. SURGEON: Araceli Casas MD. ANESTHESIA: MAC. INDICATIONS: The patient is a 64-year-old female who presents for colonoscopy screening. Benefits and risks were described and informed consent was obtained. DESCRIPTION OF PROCEDURE: The patient had undergone Suprep. The patient had been brought into the operating room and laid in the left lateral decubitus position. After adequate intravenous sedation, the rectum was examined with 2% lidocaine jelly. No external hemorrhoids were encountered. The rectal tone was within normal limits. No lesions were palpated in the rectal vault. An Olympus colonoscope was advanced however limited to the transverse colon due to severe redundancy of the sigmoid colon and severe sigmoid diverticulosis. The scope was advanced to the hub of the instrument. Multiple abdominal wall pressure maneuvers were used to advance the scope without success. The prep was excellent. Distal to the transverse colon, no colonic polyps were found. No evidence of focal colitis was found. Retroflexion of the scope demonstrated grade 1 internal hemorrhoids without active bleeding or inflammation. The colon was desufflated. The patient had tolerated the procedure well. Withdrawal time was over 6 minutes. FINDINGS: Aronchick preparation quality scale 1 (1-5) Internal hemorrhoids, grade 1 Highly redundant sigmoid colon with severe sigmoid diverticulosis preventing advancement of scope No external prolapsed hemorrhoids. No arteriovenous malformations. No adenomatous polyps distal to transverse colon No focal colitis. RECOMMENDATIONS: Lower endoscopy in 5 years, [address] of the abdomen and pelvis for severe sigmoid diverticulosis Plan - Discharge Summary New Discharge Prescriptions: Continue Multivitamins, Thera [Multivitamin (formulary)] 1 tab PO HS Cholecalciferol [Vitamin D3 (25 Mcg = 1000 Iu)] 1,000 unit PO HS Aspirin EC [Ecotrin Low Dose] 81 mg PO HS [place]-3 Fatty Acids/Fish Oil [Fish Oil 1,000 mg Softgel] 1 each PO HS Atorvastatin [Lipitor] 10 mg PO HS Enalapril [Vasotec] 10 mg PO BID Discharge Medication List Cholecalciferol [Vitamin D3 (25 Mcg = 1000 Iu)] 1,000 unit PO HS 08/09/16 [History] Multivitamins, Thera [Multivitamin (formulary)] 1 tab PO HS 08/09/16 [History] Aspirin EC [Ecotrin Low Dose] 81 mg PO HS 01/10/18 [History] [place]-3 Fatty Acids/Fish Oil [Fish Oil 1,000 mg Softgel] 1 each PO HS 12/18/19 [History] Atorvastatin [Lipitor] 10 mg PO HS 09/05/20 [History] Enalapril [Vasotec] 10 mg PO BID 09/07/20 [History] Follow up Appointment(s)/Referral(s): Araceli Casas MD [STAFF PHYSICIAN] - 09/13/20 Patient Instructions/Handouts: *[facility] - (Anesthesia) Endoscopy Discharge Instructions, Diverticulosis (DC), Diverticulosis Diet (GEN) Activity/Diet/Wound Care/Special Instructions: Repeat colonoscopy 5 years, 2025 Discharge Disposition: HOME SELF-CARE
[2020-09-07 12:12] VITALS: BP 107/66; PULSE 68
== END 2020-09-07 13:08 | disposition home or self-care (01) ==
LOC: ORWHC2ENDO 09:07
PROVIDERS: ATTEND Surgery Plastic and Reconstructive Surgery
DX: Z12.11 Encounter for screening for malignant neoplasm of colon (principal); K57.30 Diverticulosis of large intestine without perforation or abscess without bleeding; Q43.8 Other specified congenital malformations of intestine; Z86.010 Personal history of colon polyps; K64.0 First degree hemorrhoids; E78.5 Hyperlipidemia, unspecified; I10 Essential (primary) hypertension; M06.9 Rheumatoid arthritis, unspecified; Z86.73 Personal history of transient ischemic attack (TIA), and cerebral infarction without residual deficits; Z85.3 Personal history of malignant neoplasm of breast; M41.9 Scoliosis, unspecified; M54.30 Sciatica, unspecified side; Z90.49 Acquired absence of other specified parts of digestive tract; Z90.710 Acquired absence of both cervix and uterus; Z90.89 Acquired absence of other organs; Z98.890 Other specified postprocedural states; Z82.0 Family history of epilepsy and other diseases of the nervous system; Z82.49 Family history of ischemic heart disease and other diseases of the circulatory system; Z82.5 Family history of asthma and other chronic lower respiratory diseases; Z80.41 Family history of malignant neoplasm of ovary; Z79.82 Long term (current) use of aspirin; Z79.899 Other long term (current) drug therapy; Z88.1 Allergy status to other antibiotic agents; Z88.5 Allergy status to narcotic agent; Z91.09 Other allergy status, other than to drugs and biological substances
CPT/HCPCS: J2001; J2704; G0105; 45378

== ENCOUNTER → 2020-09-30 | Outpatient (CLI) | payer MEDICARE, OTHER ==
[2020-09-30 17:23] LABS: African American GFR (CKD) >90 (>60 ml/min/1.73 sqM); Blood Urea Nitrogen 17 mg/dL (7-17); Non-African American GFR(CKD) >90 (>60 ml/min/1.73 sqM)
--- NOTE | 2020-09-30 20:17 | CT ---
EXAMINATION TYPE: CT abdomen pelvis w con DATE OF EXAM: 09/30/2020 COMPARISON: None HISTORY: incomplete routine colonoscopy. hx of breast ca. CT DLP: 709.7 mGycm Automated exposure control for dose reduction was used. CONTRAST: CT scan of the abdomen pelvis is performed with IV Contrast, patient injected with 100 mL of Isovue 3 00. FINDINGS- LUNG BASES- No significant abnormality is appreciated. LIVER/GB- No gross abnormality is appreciated. PANCREAS- No gross abnormality is seen. SPLEEN- No gross abnormality is seen. ADRENALS- No gross abnormality is seen. KIDNEYS/BLADDER- no hydronephrosis nephrolithiasis or renal mass. BOWEL-bowel gas pattern nonspecific with no obstruction. No significant contrast within the transvers e colon or left colon. Changes of diverticulosis noted. Assessment for wall thickening limited. Exten sive retained fecal debris. LYMPH NODES- No greater than 1cm abdominal or pelvic lymph nodes areappreciated. OSSEOUS STRUCTURES-severe multilevel degenerative disc disease. Arthropathy of the hips.. OTHER- skin thickening involving the left breast with areas of calcification irregular masslike dens ity along the medial margin the left breast could be correlated with ultrasound or mammogram. Metalli c densities are seen within the right breast as well correlate for previous biopsy clip IMPRESSION- 1. Nonspecific abdomen with no obstruction. Retained fecal debris seen throughout the colon with moore ges of mild diverticulosis. 2. Skin thickening and suspected postoperative change involving bilateral breast with an irregular de nsity seen in the medial margin of the left breast measuring 2.3 cm which may be related to previous lumpectomy changes or the patient's history of previous breast cancer. Correlate clinically.
== END | disposition home or self-care (01) ==
LOC: RADCTMAIN 15:56
PROVIDERS: ATTEND Surgery Plastic and Reconstructive Surgery
DX: K57.30 Diverticulosis of large intestine without perforation or abscess without bleeding (principal); Z85.3 Personal history of malignant neoplasm of breast
CPT/HCPCS: 82565; 84520; 74177; 36415; Q9967

== ENCOUNTER → 2021-01-27 | Outpatient (CLI) | payer MEDICARE, OTHER ==
[2021-01-27 15:34] VITALS: BP 156/85; PULSE 77; RESP 16; TEMP 97.7
--- NOTE | 2021-01-27 15:57 | P.PN ---
Subjective Progress Note Date: 01/27/21 Principal diagnosis: bilateral breast cancer bilateral breast cancer The patient is a 63-year-old white female who is status post right breast lumpectomy with radiation approximately 16 years ago. She was approximately 47 at the time of the diagnosis. She did not have any chemotherapy or hormonal therapy for the right breast cancer. The patient then in approximately 2016 underwent a left breast lumpectomy and radiation therapy again no chemo or hormonal therapy were administered. The patient declined hormonal therapy. The patient had a mammogram performed in April 2018 had a bilateral mammogram performed and although there were no lesions of concern in the right breast there was some segmental increased calcifications in the upper outer quadrant area of the left breast and stereotactic core biopsy was recommended. The patient had some insurance problems and therefore the stereotactic core biopsy was not done. The patient returned in July 2018 and at that time a repeat left breast mammogram was performed which did not show any specific lesion of concern it was considered to be a benign BIRADS 2. The patient has no complaints related to her breast. A bilateral mammogram was preformed on 06-28-20. This was benign BIRAD 2 repeat bilateral mammogram in 1 year. Patient is not complaining of the masses lumps or nodules of concern in either breast. left breast: DCIS G2, ER/CO+, no cancer in lumpectomy specimen, SNB done and (-) family history: 1. father: skin cancer 2. sister: ovarian Hormonal history: Menarche: 11 Pregnancies:1, 1child at 33, breast fed: none menopasue: 48 BCP: none hormones: none Past surgical history: 1. Bilateral breast lumpectomy and left sentinel node biopsy 2. Bunion surgery 3. Cholecystectomy 4. gallbladder 5. SANTY, no cancer Past medical history: 1. Hyperlipidemia 2. Rheumatoid arthritis 3. mini strokes 4. HTN 5. uterus dropping/ bladder incontinence had a hysterectomy Social history: Smoke: Negative Alcohol: Negative Drugs: Negative Review of systems: HEENT: ? glaucoma Lungs: Negative Heart: Negative GI: diverticuli Gu: uterus dropping/bladder incontence Musculoskeletal: Arthritis Neurologic: Mini strokes/TIA Psychologic: Negative Integument: none Social history: Smoke: Negative Alcohol: Negative Drugs: Negative Objective - Vital Signs Vital signs: Vital Signs Temp 97.7 F 01/27/21 15:32 Pulse 77 01/27/21 15:32 Resp 16 09/10/21 15:32 BP 156/85 01/27/21 15:32 Pulse Ox 98 01/27/21 15:32 Intake & Output 01/26/21 01/27/21 01/27/21 18:59 06:59 18:59 Weight 63.503 kg - Exam BMI 21.9 - Constitutional General appearance: Present: cooperative - EENT Eyes: Present: EOMI ENT: Present: hearing grossly normal - Neck Neck: Present: normal ROM - Respiratory Respiratory: bilateral: CTA - Cardiovascular Rhythm: regular Heart sounds: normal: S1, S2 - Gastrointestinal General gastrointestinal: Present: soft - Integumentary Integumentary: Present: normal turgor - Musculoskeletal Musculoskeletal: Present: gait normal - Psychiatric Psychiatric: Present: A&O x's 3, appropriate affect, intact judgment & insight - Additional findings Additional findings: Breast Exam: BRA: 34B inspection: Bilateral scars from prior breast surgery, bilateral grade 2 ptosis Palpation: Right breast: Positional exam fibrocystic changes, scars from prior surgery Right axilla: No adenopathy of concern Left breast: Scar from prior surgery, increased nodularity in the proximity of the scar a BioSorb had been placed in the left side and it is believed that the nodularity is related to scar tissue most likely Left axilla: No adenopathy of concern Assessment and Plan Assessment: Impression: 1. Bilateral lumpectomies for breast cancer Right breast lumpectomy she underwent lumpectomy/radiation therapy/no chemo or hormonal therapy ? stage Left breast lumpectomy 2017 lumpectomy/radiation therapy/no chemo or hormonal therapy; DCIS ER+CO+G2 2. Fullness left breast a lumpectomy site Plan: 1. ultrasound of the left breast of palpable site 2. follow up after ultrasound 3. bilateral mammogram 06-28-20 then follow up
== END ==
LOC: WWCWWP 15:21
PROVIDERS: ATTEND Surgery
DX: Z08 Encounter for follow-up examination after completed treatment for malignant neoplasm (principal); Z85.3 Personal history of malignant neoplasm of breast; Z98.890 Other specified postprocedural states; E78.5 Hyperlipidemia, unspecified; I10 Essential (primary) hypertension; M06.9 Rheumatoid arthritis, unspecified; Z86.73 Personal history of transient ischemic attack (TIA), and cerebral infarction without residual deficits; Z92.3 Personal history of irradiation; Z88.1 Allergy status to other antibiotic agents; Z88.5 Allergy status to narcotic agent; Z91.048 Other nonmedicinal substance allergy status

== ENCOUNTER → 2021-02-13 | Outpatient (CLI) | payer MEDICARE, OTHER ==
--- NOTE | 2021-02-13 08:50 | USB ---
Reason for exam: clinical finding. History: Patient is postmenopausal, has history of breast cancer at age 46, has history of high-risk lesion on a previous biopsy at age 46, and had first child at age 30. Benign MG pre op needle loc LT of the left breast, August 14, 2016. Malignant MG stereo VAD BX LT of the left breast, June 21, 2016. High risk stereotactic core biopsy of the right breast, November 18, 2001. Lumpectomy of the right breast, 2001. Benign excisional biopsy of the left breast, July 17, 1999. Core biopsy of the right breast. Radiation therapy of the right breast. Physical Findings: Nurse Summary: biozorb noted medial left breast, all soft, nodular (nurse ts). US Breast Limited LT Left limited breast ultrasound including focal area of concern, retroareolar and axilla demonstrates a 2.2 x 2.4 x 2.0cm biozorb at 8 o'clock. These results were verbally communicated with the patient and result sheet given to the patient on 02/13/21. ASSESSMENT: Benign, BI-RAD 2 RECOMMENDATION: Routine screening mammogram of both breasts in 5 months. Back on schedule for June 2021.
== END | disposition home or self-care (01) ==
LOC: RADUSWWP 07:39
PROVIDERS: ATTEND Surgery
DX: R92.8 Other abnormal and inconclusive findings on diagnostic imaging of breast (principal); Z78.0 Asymptomatic menopausal state; Z85.3 Personal history of malignant neoplasm of breast

== ENCOUNTER → 2021-02-24 | Outpatient (CLI) | payer MEDICARE, OTHER ==
[2021-02-24 15:52] VITALS: BP 147/80; PULSE 74; RESP 12; TEMP 97.7
--- NOTE | 2021-02-24 16:10 | P.PN ---
Progress Note - Text Progress Note Date: 02/24/21 Patient presents for results of ultrasound performed on the left breast and [id number]. Ultrasound is benign BIRADS 2. It does demonstrate a 2.2 x 2.4 cm BioSorb 80 o'clock. The patient has a question regarding some skin dimpling at the lumpectomy site at this time there is no evidence of recurrent cancer and we are going to wait for any revision of the site. She will follow-up in June 2021 with bilateral mammogram and it for examination. CC: Dr. Mejia
== END ==
LOC: WWCWWP 15:31
PROVIDERS: ATTEND Surgery
DX: Z53.9 Procedure and treatment not carried out, unspecified reason (principal)

== ENCOUNTER → 2021-04-14 | Outpatient (CLI) | payer MEDICARE, OTHER ==
--- NOTE | 2021-04-15 08:44 | MR ---
EXAMINATION TYPE: MR cspine/lspine wo con DATE OF EXAM: 04/14/2021 COMPARISON: MRI lumbar spine January 06, 2019. MRI cervical spine April 24, 2018. HISTORY: Neck pain, and low back pain that radiates down both legs for several years TECHNIQUE: Multiplanar, multisequence imaging of the cervical and lumbar spine are performed without IV contrast. FINDINGS: Cervical spine: FINDINGS: Stable slight scoliotic curvature on coronal images. Sagittal images of the cervical spine show the craniocervical junction to remain within normal limits. The cervical and upper thoracic spi nal cord remains normal in course, caliber, and signal. Persistent exaggerated cervical curvature wit h slight grade 1 retrolisthesis C3 on C4 and C4 on C5 with more prominent but stable grade 1 retrolis thesis C5 on C6. The vertebral body heights are normal. Mild to moderate disc space narrowing and m ild anterior spurring C5-C6 level redemonstrated. The bone marrow signal intensity remains within nor mal limits. Axial images at C2-C3 level remain within normal limits. Axial images at C3-C4 level shows subtle spondylolisthesis with mild broad-based posterior disc protr usion mildly effacing the anterior thecal sac, mild asymmetric right-sided neural foraminal narrowing . No significant change from prior. Axial images at the C4-C5 levels show focal central disc protrusion effacing the anterior thecal sac, patent bilateral neural foramina, no significant change from prior. Axial images at C5-C6 level shows spondylolisthesis with broad base posterior spur disc complex, ther e is effacement of the anterior thecal sac nearly up to the ventral surface of spinal cord not signif icant changed from prior study. There is moderate left greater than right bilateral neural foraminal narrowing that appears more prominent from prior. Axial images at C6-C7 and C7-T1 levels remain within normal limits. IMPRESSION: Multilevel spondylolisthesis and degenerative changes in the cervical spine greatest at C 5-C6 level with some interval degenerative progression noted at this level from 2018 MRI as detailed above. Lumbar spine: There is persistent dextroconvex scoliosis centered at L3 level. Sagittal images of the lumbar spine show vertebral body heights to remain satisfactory. Loss of normal lumbar lordosis redemonstrated on sagittal images. Persistent multilevel disc desiccation with [id number] multilevel disc space n arrowing greatest at L3-L4 and L4-L5 level. There is heterogeneous T2 endplate changes noted at L4-L5 level redemonstrated is. Lywb-xy-[id number] multilevel anterior spurring redemonstrated. The conus me dullaris remains normal in position and signal ending mid L1 level. Review of axial images shows T12-L1 levels remain within normal limits. Axial images at L1-L2 level show mild broad disc bulge and mild facet degenerative changes and ligame ntum flavum hypertrophy. There is minimal effacement of the anterior thecal sac and some effacement o f the left posterior lateral thecal sac redemonstrated. The bilateral neural foramina. No significant change from prior. Axial images at the L2-L3 level shows mild broad disc bulge with right foraminal disc protrusion comp onent axial image 18. Mild effacement anterior thecal sac is seen. Patent bilateral neural foramina. No significant change from prior. Axial images at L3-L4 level show mild facet arthropathy and ligamentum flavum hypertrophy effacing th e posterior lateral thecal sac. Mild broad disc bulge minimally effaces the anterior thecal sac. The bilateral neural foramina remain patent. No significant change from prior. Axial images at the L4-L5 levels show mild to moderate facet arthropathy and ligament flavum hypertro phy. Mild broad-based posterior disc protrusion minimally effaces the anterior thecal sac. Patent lisa ateral neural foramina. Axial images at the L5-S1 level shows mild facet arthropathy bilaterally. There is right lateral disc protrusion. Spinal canal is preserved. Patent left-sided neural foramina. Mild to moderate right-leonard ed inferior neural foraminal narrowing. No significant change from prior. Paraspinal muscle bulk maintained. IMPRESSION: Scoliosis and loss of normal lumbar lordosis. Multilevel degenerative changes as detailed above. No significant change from 2019 MRI.
== END | disposition home or self-care (01) ==
LOC: RADMRIMAIN 20:50
PROVIDERS: ATTEND Nurse Practitioner Acute Care
DX: R90.82 White matter disease, unspecified (principal); M47.812 Spondylosis without myelopathy or radiculopathy, cervical region; M47.816 Spondylosis without myelopathy or radiculopathy, lumbar region
CPT/HCPCS: 72141; 72148

== ENCOUNTER → 2021-04-17 | Outpatient (CLI) | payer MEDICARE, OTHER ==
--- NOTE | 2021-04-18 03:04 | MR ---
EXAMINATION TYPE: MR brain wo/w con DATE OF EXAM: 04/17/2021 COMPARISON: 07/30/2020 HISTORY: White matter disease, evaluate for MS. Has had 44 mini villarreal CONTRAST: Standard multiplanar, multisequence MRI departmental protocol images were obtained without contrast a nd with 7.5 mL intravenous Gadavist gadolinium contrast. Multiplanar multiecho imaging of the brain without and with IV contrast. Ventricles have normal size. There is no mass effect nor midline shift. There is no sign of intracran ial hemorrhage. Diffusion images show no evidence of an acute infarct. On the T2 and FLAIR images the re are scattered white matter foci of increased signal at the devine-white matter junction of both cere bral hemispheres. These measure up to 5 mm and total number is approximately 25. The brainstem is int act. Corpus callosum is intact. There is no corpus callosum involvement of white matter disease. Contrast images show no pathologic enhancement. There is normal enhancement of the venous sinuses. Se lla turcica appears normal. There is no evidence of orbital mass. IMPRESSION: Multiple nonenhancing white matter high signal foci not significantly different than old exam and cou ld relate to demyelinating disease or microvascular ischemia. No evidence of any significant new lesi on compared to old exam.
== END | disposition home or self-care (01) ==
LOC: RADMRIMAIN 20:32
PROVIDERS: ATTEND Nurse Practitioner Acute Care
DX: R90.82 White matter disease, unspecified (principal); G93.89 Other specified disorders of brain
CPT/HCPCS: 70553; A9585

== ENCOUNTER → 2022-06-15 | Outpatient (CLI) | payer MEDICARE ==
[2022-06-15 14:20] VITALS: BP 135/80; PULSE 76; RESP 18; TEMP 97.5
--- NOTE | 2022-06-15 14:38 | P.PN ---
Subjective Progress Note Date: 06/15/22 bilateral breast cancer The patient is a 66-year-old white female who is status post right breast lumpectomy with radiation approximately 19 years ago. That surgery was at [facility], with DR. Figueredo. She was approximately 47 at the time of the diagnosis. She did not have any chemotherapy or hormonal therapy for the right breast cancer. The patient then in approximately 2016 at [facility], she underwent a left breast lumpectomy and radiation therapy again no chemo or hormonal therapy were administered. The patient declined hormonal therapy. The patient had a mammogram performed in April 2018 had a bilateral mammogram performed and although there were no lesions of concern in the right breast there was some segmental increased calcifications in the upper outer quadrant area of the left breast and stereotactic core biopsy was recommended. The patient had some insurance problems and therefore the stereotactic core biopsy was not done. The patient returned in July 2018 and at that time a repeat left breast mammogram was performed which did not show any specific lesion of concern it was considered to be a benign BIRADS 2. The patient has no complaints related to her breast. A bilateral mammogram was preformed on 06-28-20. This was benign BIRAD 2 repeat bilateral mammogram in 1 year. Patient is not complaining of the masses lumps or nodules of concern in either breast. Her last bilateral mammogram was 07-03-21 plus benign BIRADS 2. She is not complaining of any new lumps masses or nodules of concern in either breast. left breast: DCIS G2, ER/NV+, no cancer in lumpectomy specimen, SNB done and (-) family history: 1. father: skin cancer 2. sister: ovarian Hormonal history: Menarche: 11 Pregnancies:1, 1child at 33, breast fed: none menopasue: 48 BCP: none hormones: none Past surgical history: 1. Bilateral breast lumpectomy and left sentinel node biopsy 2. Bunion surgery 3. Cholecystectomy 4. gallbladder 5. SANTY, no cancer Past medical history: 1. Hyperlipidemia 2. Rheumatoid arthritis 3. mini strokes 4. HTN 5. uterus dropping/ bladder incontinence had a hysterectomy Social history: Smoke: Negative Alcohol: Negative Drugs: Negative Review of systems: HEENT: ? glaucoma Lungs: Negative Heart: Negative GI: diverticuli Gu: uterus dropping/bladder incontence Musculoskeletal: Arthritis Neurologic: Mini strokes/TIA Psychologic: Negative Integument: none Social history: Smoke: Negative Alcohol: Negative Drugs: Negative Objective - Vital Signs Vital signs: Vital Signs Temp 97.5 F L 06/15/22 14:16 Pulse 76 06/15/22 14:16 Resp 18 06/15/22 14:16 BP 135/80 06/15/22 14:16 Pulse Ox 98 06/15/22 14:16 FiO2 Intake & Output 06/14/22 06/15/22 06/15/22 18:59 06:59 18:59 Weight 58.967 kg - Constitutional General appearance: Present: cooperative - EENT Eyes: Present: EOMI ENT: Present: hearing grossly normal - Neck Neck: Present: normal ROM - Respiratory Respiratory: bilateral: CTA - Cardiovascular Rhythm: regular Heart sounds: normal: S1, S2 - Gastrointestinal General gastrointestinal: Present: soft - Integumentary Integumentary: Present: normal turgor - Musculoskeletal Musculoskeletal: Present: gait normal - Psychiatric Psychiatric: Present: A&O x's 3, appropriate affect, intact judgment & insight - Additional findings Additional findings: Breast Exam: BRA: 34B inspection: Bilateral scars from prior breast surgery, bilateral grade 2 ptosis Palpation: Right breast: multi-positional exam fibrocystic changes, scars from prior surgery Right axilla: No adenopathy of concern Left breast: Scar from prior surgery, increased nodularity in the proximity of the scar a BioSorb had been placed in the left side and it is believed that the nodularity is related to scar tissue most likely Left axilla: No adenopathy of concern Assessment and Plan Assessment: Impression: 1. Bilateral lumpectomies for breast cancer Right breast lumpectomy she underwent lumpectomy/radiation therapy/no chemo or hormonal therapy ? stage is was done at [facility] approximately [address] Justin Jacques Left breast lumpectomy 2017 lumpectomy/radiation therapy/no chemo or hormonal therapy; DCIS ER+NV+G2 2. Fullness left breast a lumpectomy site improved Plan: 1. Bilateral mammogram in July 2022 with physician exam at that time 2. follow up after mammogram Additional CC's: Magui Mejia
== END ==
LOC: WWCWWP 13:39
PROVIDERS: ATTEND Surgery
DX: Z90.13 Acquired absence of bilateral breasts and nipples (principal); E78.5 Hyperlipidemia, unspecified; M06.9 Rheumatoid arthritis, unspecified; I10 Essential (primary) hypertension; Z88.1 Allergy status to other antibiotic agents; Z88.5 Allergy status to narcotic agent; Z91.048 Other nonmedicinal substance allergy status

== ENCOUNTER → 2022-09-07 | Outpatient (CLI) | payer MEDICARE ==
--- NOTE | 2022-09-07 19:51 | MR ---
EXAMINATION TYPE: MR lumbar spine wo con DATE OF EXAM: 09/07/2022 7:36 PM COMPARISON: NONE HISTORY: Low back pain Multiplanar, MultiSpin echo imaging of the lumbar spine was performed. L1-L2: mild broad disc bulge and mild facet degenerative changes and ligamentum flavum hypertrophy. T here is minimal effacement of the anterior thecal sac and some effacement of the left posterior later al thecal sac redemonstrated. The bilateral neural foramina. Stable L2-L3: mild broad disc bulge with right foraminal disc protrusion component Mild effacement anterior thecal sac is seen. Patent bilateral neural foramina. Stable L3-L4: mild facet arthropathy and ligamentum flavum hypertrophy effacing the posterior lateral thecal sac. Mild broad disc bulge minimally effaces the anterior thecal sac. The bilateral neural foramina remain patent.Stable L4-L5: mild to moderate facet arthropathy and ligament flavum hypertrophy. Mild broad-based posterior disc protrusion minimally effaces the anterior thecal sac. Patent bilateral neural foramina. Stable. L5-S1: mild facet arthropathy bilaterally. There is right lateral disc protrusion. Spinal canal is pr eserved. Patent left-sided neural foramina. Mild to moderate right-sided inferior neural foraminal na rrowing. Lumbar segments are intact. No paraspinal masses are identified. Conus medullaris has a normal appe arance. Multilevel ventral spondylosis. Degenerative endplate marrow changes. Scoliosis convex to the right. IMPRESSION: 1. Multilevel degenerative disc disease unchanged from prior study.
== END | disposition home or self-care (01) ==
LOC: RADMRIMAIN 18:17
PROVIDERS: ATTEND Psychiatry & Neurology Neurology
DX: M47.26 Other spondylosis with radiculopathy, lumbar region (principal); M51.16 Intervertebral disc disorders with radiculopathy, lumbar region
CPT/HCPCS: 72148